=== PATIENT | male | born 1960 | race Caucasian/White ===

== ENCOUNTER 2020-05-03 13:47 | Inpatient (IN) | payer OTHER, SELFPAY ==
[2020-05-03] VITALS (41 sets, daily range): BP systolic 108–133; BP diastolic 57–82; PULSE 76–88; RESP 20–38; TEMP 36.4–36.8; O2SAT 81–98; BMI 25.0
--- NOTE | ~2020-05-03 | XR_ITS ---
XR chest ET placement DATE: 05/08/2020 09:55 INDICATION: Intubation TECHNIQUE: Portable AP chest on 05/08/2020 at 0946 hours COMPARISON: 05/03/2020 portable AP chest at 1443 hours FINDINGS: This is a limited examination excluding much of the left thorax. ET tube placement since 05/03/2020, the tip of the ET tube approximately 5.3 cm above the maryam. A nasogastric tube is noted in the stomach. Extensive bilateral pulmonary patchy consolidating infiltrates are again noted. No aortic arch calcif ication. IMPRESSION: Interval ET tube placement, distal tip 5.3 cm above maryam NG tube in stomach Persistent extensive bilateral patchy consolidating infiltrates Reviewed, dictated and finalized at [facility]. Reviewed, dictated and finalized at location A. ER HELPER IMPRESSION: Interval ET tube placement, distal tip 5.3 cm above amryam NG tube in stomach Persistent extensive bilateral patchy consolidating infiltrates
--- NOTE | ~2020-05-03 | US_ITS ---
EXAMINATION: US arterial duplex LE DATE: 05/11/2020 10:26 INDICATION: Acute right lower limb ischemia. TECHNIQUE: Multiple grayscale and Doppler ultrasound images of the lower limb arteries were obtained. COMPARISON: None FINDINGS: Peak systolic velocity is 77 cm/s in right common femoral artery, 25 cm/s in right superfic ial femoral artery, and 13 cm/s in right popliteal artery. There is no detectable flow in right anter ior tibial artery or posterior tibial artery. The peroneal artery was not evaluated. Pieces artery velocity is 78 cm/s left common femoral artery, 39 cm/s in left superficial femoral art richard, 170 cm/s in left popliteal artery, 36 cm/s left posterior tibial artery, and 17 cm/s left anteri or tibial artery. The peroneal artery was not evaluated. IMPRESSION: 1. 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 Increased velocity gr adient between right common femoral artery and superficial femoral artery, consistent with moderate t o severe stenosis. 2. Increased velocity gradients proximal and distal to left popliteal artery, consistent with moderat e to severe stenosis. Reviewed, dictated and finalized at location A. INAL INTELLIGENCE ANALYST IMPRESSION: 1. 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 Increased velocity gradient between right common femoral artery and superficia l femoral artery, consistent with moderate to severe stenosis. 2. Increased velocity gradients proximal and distal to left popliteal artery, c onsistent with moderate to severe stenosis.
--- NOTE | ~2020-05-03 | XR_ITS ---
EXAMINATION: XR chest 1V portable EXAM DATE: 05/03/2020 15:02 INDICATION: Shortness of breath. TECHNIQUE: Portable AP frontal chest x-ray was obtained. There is no prior study for comparison. FINDINGS: Moderate to large amount of bilateral peripheral predominant acute airspace disease, appear ance is most consistent with COVID-19 pneumonia. Other infectious or noninfectious etiologies not exc ludable. No pneumothorax or pleural effusion. Cardiomediastinal silhouette is normal. IMPRESSION: Moderate to large amount of acute airspace disease, appearance suspicious for COVID-19 p neumonia. Reviewed, dictated and finalized at location B. R MAIN PIPE LAYER IMPRESSION: Moderate to large amount of acute airspace disease, appearance mena picious for COVID-19 pneumonia.
--- NOTE | ~2020-05-03 | XR_ITS ---
EXAMINATION: XR chest 1V portable EXAM DATE: 05/09/2020 05:38 INDICATION: COVID-19 pneumonia . Respiratory failure. TECHNIQUE: Portable AP frontal chest x-ray was obtained. Comparison is made to prior examination from 05/08/2020. FINDINGS: Endotracheal tube tip is 6 centimeters above the maryam. There is a right-sided PICC line w ith tip projecting over the cavoatrial junction. There is a nasogastric tube seen with tip collimated off the study, but below the left hemidiaphragm. Moderate amount of patchy bilateral peripheral predominant acute airspace disease There are no sizab le pleural effusions. There is no pneumothorax suspected. Cardiomediastinal silhouette is normal. The bones and soft tissues are unremarkable. There is no significant interval change compared to prior exam. IMPRESSION: 1. Line and tube(s) in position. 2. Moderate amount of bilateral airspace disease consistent with COVID-19 pneumonia. Reviewed, dictated and finalized at location A. THETIC AIDE IMPRESSION: 1. Line and tube(s) in position. 2. Moderate amount of bilateral airspace disease consistent with COVID-19 pneu monia.
--- NOTE | ~2020-05-03 | XR_ITS ---
XR chest PICC line DATE: 05/08/2020 12:34 INDICATION: PICC line placement TECHNIQUE: Portable AP chest on 05/08/2020 at 1225 hours COMPARISON: 05/08/2020 portable AP chest at 0946 hours FINDINGS: Interval placement of right upper extremity PIC catheter, the distal tip overlying the caud al aspect of the superior vena cava. ET tube in satisfactory position approximately 4.8 cm above maryam. NG tube in stomach. Severe bilateral patchy consolidating infiltrates are again noted. IMPRESSION: Right upper extremity PIC catheter tip at caudal aspect of superior vena cava Reviewed, dictated and finalized at [facility]. Reviewed, dictated and finalized at location A. NE PAINTER
--- NOTE | ~2020-05-03 | XR_ITS ---
EXAMINATION: XR chest 1V portable EXAM DATE: 05/10/2020 06:15 INDICATION: COVID-19 pneumonia. TECHNIQUE: Portable AP frontal chest x-ray was obtained. Comparison is made to prior examination from 05/09/2020. FINDINGS: Endotracheal tube tip is 5 centimeters above the maryam. There is a right-sided PICC line w ith tip projecting over the cavoatrial junction. There is a nasogastric tube seen with tip collimate d off the study, but below the left hemidiaphragm. Large amount of patchy bilateral acute airspace disease, consistent with COVID-19. There are no siza ble pleural effusions. There is no pneumothorax suspected. Cardiomediastinal silhouette is normal . The bones and soft tissues are unremarkable. Worsening airspace disease. IMPRESSION: 1. Line and tube(s) in position. 2. Extensive bilateral acute airspace disease, interval progression. Reviewed, dictated and finalized at location A. YLENE CYLINDER PACKING MIXER
--- NOTE | ~2020-05-03 | XR_ITS ---
EXAMINATION: XR chest 1V portable EXAM DATE: 05/11/2020 05:48 INDICATION: COVID-19 pneumonia TECHNIQUE: Portable AP frontal chest x-ray was obtained. Comparison is made to prior examination from 05/10/2020. FINDINGS: Endotracheal tube tip is 5 centimeters above the maryam. There is a right-sided PICC line w ith tip projecting over the cavoatrial junction. There is a nasogastric tube seen with tip collimate d off the study, but below the left hemidiaphragm. Large amount of patchy bilateral acute airspace disease, consistent with COVID-19. There are no siza ble pleural effusions. There is no pneumothorax suspected. Cardiomediastinal silhouette is normal . The bones and soft tissues are unremarkable. There is no significant interval change. IMPRESSION: 1. Line and tube(s) in position. 2. Extensive bilateral acute airspace disease. Reviewed, dictated and finalized at location A. CONSULTANT
--- NOTE | ~2020-05-03 | XR_ITS ---
XR abdomen NG/feed tube insert DATE: 05/08/2020 09:56 INDICATION: NG tube placement TECHNIQUE: Portable AP view on 05/08/2020 at 0947 hours COMPARISON: None FINDINGS: A nasogastric tube is noted in the lower body of the stomach, the proximal side-port 8 cm d istal to the diaphragmatic hiatus. Diffuse patchy bilateral consolidating infiltrates are again noted. Heart size appears normal. Aortic arch calcification. Nonspecific bowel gas pattern without apparent obstruction. IMPRESSION: NG tube in lower body of stomach Reviewed, dictated and finalized at [facility]. Reviewed, dictated and finalized at location A. KER
--- NOTE | ~2020-05-03 | XR_ITS ---
EXAMINATION: XR chest 1V portable EXAM DATE: 05/12/2020 06:14 INDICATION: COVID-19 pneumonia TECHNIQUE: Portable AP frontal chest x-ray was obtained. Comparison is made to prior examination from 05/11, 05/10, 05/09. FINDINGS: Endotracheal tube tip is 5 centimeters above the maryam. There is a right-sided PICC line w ith tip projecting over the cavoatrial junction. There is a nasogastric tube seen with tip collimate d off the study, but below the left hemidiaphragm. Large amount of patchy bilateral acute airspace disease, consistent with COVID-19. There are no siza ble pleural effusions. There is no pneumothorax suspected. Cardiomediastinal silhouette is normal . The bones and soft tissues are unremarkable. There is no significant interval change. IMPRESSION: 1. Line and tube(s) in position. 2. Extensive bilateral acute airspace disease. Reviewed, dictated and finalized at location A. REGROOVING MACHINE OPERATOR
--- NOTE | 2020-05-03 14:06 | ECG_ITS ---
Measurements Intervals [place] Rate: 83 P: 52 WY: 143 QRS: -33 QRSD: 106 T: 30 QT: 376 QTc: 443 Interpretive Statements SINUS RHYTHM LEFT AXIS DEVIATION DELAYED PRECORDIAL R/S TRANSITION BASELINE ARTIFACT- I, II, III, AVR, AVL, AVF, V1 BORDERLINE ECG Electronically Signed On 05-03-2020 14:29:00 IT INTEGRATION ARCHITECT by Juan Powers D.O.
--- NOTE | 2020-05-03 14:12 | PC.NURSE ---
pt placed on 6 liters nc with pulse ox increasing to 85%. pt continues to c/o some. switched to 12 l nrb with pulse ox increasing to 96%.
--- NOTE | 2020-05-03 14:24 | ED.GENADULT ---
HPI - General Adult General Chief complaint: Weakness Stated complaint: covid +, weakness Time Seen by Provider: 05/03/20 14:11 Source: patient History of Present Illness HPI narrative: Patient is a 60 y/o male complaining of severe SOB. He states that his SOB started around 04/24/20 and it has been getting worse last few days. He states that any activity and exertion makes SOB worse. He also has a cough, fever, body ache and generalized weakness. He tested positive for COVID on 04/29/20. Related Data Home Medications Medication Instructions Recorded Confirmed canagliflozin [Invokana] 300 mg PO DAILY 05/03/20 05/03/20 metformin 1,000 mg PO BID 05/03/20 05/03/20 Allergies Allergy/AdvReac Type Severity Reaction Status Date / Time No Known Allergies Allergy Verified 05/03/20 15:16 Review of Systems Constitutional: Constitutional: Denies chills, Reports fever(s), Denies headache(s) and Reports weakness Eyes: Eyes: Denies blurry vision ENT: Denies headache(s) and Denies neck pain Cardiovascular: Cardiovascular: Denies chest pain and Reports dyspnea Respiratory: Respiratory: Reports cough and Reports dyspnea Gastrointestinal: Gastrointestinal: Denies abdominal pain, Denies diarrhea, Denies nausea and Denies vomiting Genitourinary: Genitourinary: Denies hematuria and Denies dysuria Musculoskeletal: Musculoskeletal: Denies back pain, Reports myalgias and Denies neck pain Neurologic: Denies headache(s) and Reports weakness PMFSH Past Medical History Medical History (Updated 05/03/20 @ 18:36 by Roberta Heard MD) Hypertriglyceridemia Type 2 diabetes mellitus Surgical History Surgical History (Updated 05/03/20 @ 16:38 by Ela Ventura DO) History of cardiac catheterization History of repair of right rotator cuff With no significant disease noted Family History Family History Mother Diabetes mellitus CHF (congestive heart failure) Father CHF (congestive heart failure) Diabetes mellitus Social History Social History (Updated 05/03/20 @ 16:49 by Ela Ventura DO) Social History: He lives in [place] with his . They have a total of 5 children between the 2 of them. He is 1 of 9 children. One of his siblings young but the rest are relatively healthy. Primary care physician: Dr. Nuno Messina Code status: Full code Smoking packs per day: 1 Smoking cigarettes per day: 20.0 Years smoked: 32 Smoking pack-years: 32.00 Smoking status: Former smoker Alcohol intake: never Alcohol use details: He rarely drinks alcohol and only in small amounts. However used to drink heavier in his younger days. Substance use: never Substance use type: does not use Occupation/Education: occupation Additional occupation/education comments: He works in [employer] sales. Gender identity (if verbalized by the patient): Male Spiritual care concerns: No Exam Const: General: well developed and ill appearing Orientation/consciousness: oriented to person, oriented to place, oriented to time and patient oriented x3 HENMT: Head: normocephalic Ears: external ears normal General nose exam: Normal external nose present Eyes: General: appearance normal, both eyes and all related structures Conjunctivae: conjunctivae normal Neck: Neck: normal visual inspection and full ROM Chest: Chest palpation & inspection: normal inspection of the chest and no tenderness Resp: Effort & Inspection: able to speak in complete sentences, abnormal respiratory pattern and tachypneic Cardio: Rate: regular rate Rhythm: regular rhythm GI: GI Palp: No abdominal tenderness and Yes Soft to palpation Skin: General skin exam: normal color and turgor normal Neuro: General: oriented to person, oriented to place, oriented to time and patient oriented x3 Cognition (Neuro): normal cognition Extrem: General: misty
[2020-05-03 14:37] LABS: Basophils Percent Auto 0.2 % (0.2-1.2); Eosinophils Percent Auto 0.2 % (0-4.4); Hemoglobin 15.1 g/dL (14.0-18.0); Immature Granulocyte Absolute 0.04 K/mm3 (0.00-0.031); Immature Granulocyte Percent A 0.6 % (0-0.5); Immature Platelet Fraction Pct 2.9 % (0.9-11.2); Lymphocytes Absolute Auto 0.82 K/mm3 (0.9-3.2); Lymphocytes Percent Auto 12.7 % (18.3-44.2); Mean Corpuscular Hemoglobin 32.6 pg (26-34); Mean Corpuscular Volume 90.7 fl (80-100); Monocytes Absolute Auto 0.3 K/mm3 (0.1-0.6); Neutrophils Absolute Auto 5.3 K/mm3 (1.3-6.7); Neutrophils Percent Auto 82.3 % (45.5-73.1); Platelet Count Result 144 k/mm3 (150-375); Red Blood Count 4.63 M/mm3 (4.6-6.20); Red Cell Distribution Width 11.2 % (11.5-14.5); White Blood Count 6.5 K/mm3 (4.5-10.0)
[2020-05-03 14:47] LABS: Alanine Aminotransferase 23 U/L (4-50); Albumin Level 3.9 g/dL (3.5-5.1); Alkaline Phosphatase 70 U/L (38-126); Anion Gap 9 mmol/L (8-16); Aspartate Amino Transferase 49 U/L (17-59); Bilirubin,Total 1.7 mg/dL (0.2-1.3); Blood Urea Nitrogen 18 mg/dL (9-20); Calcium 8.2 mg/dL (8.4-10.2); Carbon Dioxide 30 mmol/L (22-30); Chloride 93 mmol/L (98-107); Estimated CRCL calculation 75 ml/min; Estimated Glomerular Filt Rate > 60; Glucose 189 mg/dL (75-110); Potassium 4.1 mmol/L (3.4-5.0); Sodium 132 mmol/L (137-145)
[2020-05-03 15:02] LABS: Alveolar/Arterial O2 Gradient 612.8 mmHg; Base Excess ABG 0.6 mEq/l (+/-2.0); Fractional Inspired Oxygen 100 %; HCO3 ABG 23.9 mEq/l (22.0-26.0); Oxygen Content ABG 19.9 %vol (16.0-22.0); Oxygen Saturation ABG 94.1 % (95.0-100.0); Oxyhemoglobin 92.4 % THb (90.0-100.0); PCO2 ABG 34.4 mmHg (35.0-45.0); PO2 ABG 65.8 mmHg (80.0-100.0); PO2 FiO2 Ratio Arterial Blood 0.66 %; Total Hemoglobin 15.3 g/dL (12.0-18.0); pH ABG 7.459 (7.350-7.450)
[2020-05-03 15:14] LABS: Device NON-REBREATHER MASK; Modified Allen's Test Pass; Site Drawn RIGHT RADIAL
[2020-05-03] MEDS: DEXAMETHASONE SOD PHOS INJ 4 MG/ML VIAL 6 MG IV PUSH (15:31)
--- NOTE | 2020-05-03 15:46 | PM.IMHP ---
H&P: HPI History of Present Illness Date/Time: 05/03/20 15:46 Chief complaint: Acute Respiratory Failure w/Hypoxia, COVID Pneumon Narrative: Sylvester Bazan is a 60 year old male Of hypertriglyceridemia and type 2 diabetes mellitus who presented to the ER with 1 week of weakness, shortness of breath associated with known COVID-19 infection. 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 He subsequently exposed all of his coworkers when he came back positive. The patient reported the symptoms started on 04/24/2020. He felt like it was of worst flu he had ever had. He had fevers up to 103. He developed shortness of breath that is progressively worsened throughout the course of his illness. On day 4 in 5 he developed diarrhea and loss of sense of taste and smell. He has had decreased appetite with associated decreased oral intake. He has not had any nausea or vomiting. He has had severe rigors and chills. He has had 2 falls in the past week. He was so weak today that he could not stand up in brush his teeth. His shortness of breath is worse with minimal activity. He was taking Tylenol [id number] for his fevers with little relief in his symptoms. He was trying to ?sweat his fever out.? He has been having some generalized headaches and myalgias. He denies any vision changes. He has not had any localized weakness. He denies a history of lung disease but is former smoker and quit smoking in his 40s. Review of Systems Review of Systems: Narrative: 12 systems were reviewed with pertinent positives and negatives per HPI. Except as documented in the HPI, all other systems were reviewed and are negative. [facility] Past Medical History Medical History (Updated 05/03/20 @ 16:49 by Ela Ventura DO) Hypertriglyceridemia Type 2 diabetes mellitus Surgical History Surgical History (Updated 05/03/20 @ 16:38 by Ela Ventura DO) History of cardiac catheterization History of repair of right rotator cuff With no significant disease noted Family History Family History Mother Diabetes mellitus CHF (congestive heart failure) Father CHF (congestive heart failure) Diabetes mellitus Social History Social History (Updated 05/03/20 @ 16:49 by MAVIS Geiger Social History: He lives in [place] with his . They have a total of 5 children between the 2 of them. He is 1 of 9 children. One of his siblings young but the rest are relatively healthy. Primary care physician: Dr. Nuno Messina Code status: Full code Smoking packs per day: 1 Smoking cigarettes per day: 20.0 Years smoked: 32 Smoking pack-years: 32.00 Smoking status: Former smoker Alcohol use details: He rarely drinks alcohol and only in small amounts. However used to drink heavier in his younger days. Substance use: never Occupation/Education: occupation Additional occupation/education comments: He works in [employer]. Meds Home Medications and Allergies Allergies Allergy/AdvReac Type Severity Reaction Status Date / Time No Known Allergies Allergy Verified 05/03/20 15:16 Vital Signs Vital Signs - 24 hr 05/03/20 14:03 Temperature 97.5 F L Pulse Rate 84 Respiratory Rate 20 Blood Pressure 111/66 Pulse Oximetry 90 Exam Narrative: Exam Narrative: PHYSICAL EXAM: WEIGHT 81.6 kg BMI 26.6 General: Mildly ill-appearing, appears stated age, height weight proportionate HEENT: Mucous membranes are tacky, pupils are equal and reactive, no scleral icterus, no conjunctival pallor, head is normocephalic atraumatic Respiratory: Tachypneic, equal breath sounds bilaterally Cardiovascular: Regular rate, regular rhythm, 2+ pulses bilateral upper and lower extremities Gastrointestinal: Soft, nontender, nondistended, positive bowel vinh
--- NOTE | 2020-05-03 17:00 | PC.NURSE ---
pt states is feeling better. ease of breathing improved. pt remains on 12 l nc. pulse ox upper 90's resp 28 at rest. admission in progress. wtg med from pharmacy.
--- NOTE | 2020-05-03 18:45 | PC.NURSE ---
respirations remain 28 at rest. continue waiting for bed to be ready in imu. nurse to call when ready.
--- NOTE | 2020-05-03 21:13 | ADMGEN ---
This patient, Sylvester Bazan, was admitted to IMU Room 206-01 [id number]. Patient/family oriented to hospital policies and general routines including ID bracelet, bed and alarms, visiting hours, pain management, procedures, bathroom and other care routines, personal items, smoking policy, room service/diet, and visiting hours. Information on how to activate the Rapid Response Team has been discussed. Patient/Family are encouraged to report perceived risks to care and to ask questions if they do not understand what they are told or what they should do.
[2020-05-03] MEDS: REMDESIVIR 200 MG/NS 250 ML 200 MG/250 ML BAG 250 MG IVPB (21:16)
[2020-05-04] VITALS (15 sets, daily range): BP systolic 110–129; BP diastolic 59–73; PULSE 71–110; RESP 20–24; TEMP 35.5–36.7; O2SAT 87–99; BMI 25.0
[2020-05-04 03:45] LABS: Glucose Point of Care 199 (65-105)
[2020-05-04 05:39] LABS: Hematocrit 42.5 % (42.0-52.0); Hemoglobin 15.3 g/dL (14.0-18.0); Mean Corpuscular Hemoglobin 32.3 pg (26-34); Mean Corpuscular Volume 89.9 fl (80-100); Platelet Count Result 122 k/mm3 (150-375); Red Blood Count 4.73 M/mm3 (4.6-6.20); White Blood Count 4.2 K/mm3 (4.5-10.0)
[2020-05-04 05:47] LABS: D Dimer 1.82 ug/mL (<0.48)
[2020-05-04 05:51] LABS: Potassium 4.3 mmol/L (3.4-5.0)
[2020-05-04 06:00] LABS: Alanine Aminotransferase 23 U/L (4-50); Albumin Level 3.7 g/dL (3.5-5.1); Alkaline Phosphatase 74 U/L (38-126); Anion Gap 15 mmol/L (8-16); Aspartate Amino Transferase 46 U/L (17-59); Bilirubin,Total 1.4 mg/dL (0.2-1.3); Blood Urea Nitrogen 24 mg/dL (9-20); Calcium 8.4 mg/dL (8.4-10.2); Carbon Dioxide 26 mmol/L (22-30); Chloride 94 mmol/L (98-107); Estimated CRCL calculation 72 ml/min; Estimated Glomerular Filt Rate > 60; Glucose 204 mg/dL (75-110); Lactate Dehydrogenase 1298 U/L (313-618); Sodium 135 mmol/L (137-145)
[2020-05-04 07:33] LABS: Ferritin > 2000.00 ng/mL (11.1-264)
[2020-05-04] MEDS: DEXAMETHASONE SOD PHOS INJ 4 MG/ML VIAL 6 MG IV PUSH (09:13)
[2020-05-04] MEDS: ENOXAPARIN 40 MG/0.4 ML SYRINGE SUB-Q ×2 (09:13→21:57)
[2020-05-04] MEDS: INSULIN ASPART (*BKC) 100 UNITS/ML SUB-Q ×3 (09:14→17:36)
--- NOTE | 2020-05-04 09:18 | PM.IMPN ---
Progress Note: A&P Assessment and Plan (1) Acute respiratory failure with hypoxia: Code(s): J96.01 - Acute respiratory failure with hypoxia Status: Acute Assessment and Plan: Currently on non-rebreather (2) Pneumonia due to COVID-19 virus: Code(s): U07.1 - COVID-19; J12.89 - Other viral pneumonia Status: Acute Assessment and Plan: -diagnosed -keep supplemental O2 to keep O2 sat >90% -Remdesivir, dexamethasone 05/03- -convalescent plasma 05/04 ordered -protonix for GI prophylaxis -lovenox 40mg BID moderate dose anticoagulation -supplements: zinc, vitamin c, vitamin d -nebulizers/MDI: albuterol -tylenol for fever -guaifenesin for cough -incentive spirometry if able q1hr while awake -will check inflammatory markers ferritin, ldh, crp q48hrs (3) Diabetes mellitus with hyperglycemia: Qualifiers: Diabetes mellitus type: type 2 Diabetes mellitus usp insulin use: without usp use Qualified Code(s): E11.65 - Type 2 diabetes mellitus with hyperglycemia Code(s): E11.65 - Type 2 diabetes mellitus with hyperglycemia Status: Acute Assessment and Plan: -diabetic carb consistent diet -sliding scale insulin a.c. HS -hypoglycemia protocol -anticipate hyperglycemia with Decadron Additional Plan Diet: Carb consistent diet DVT prophylaxis: Lovenox Code status: Full code Disposition: IMU while on non-rebreather Subjective Date/time seen: 05/04/20 09:18 Patient examined. Patient is on a non-rebreather at 15 L. we discussed treatment with supplemental oxygen, with potential patient may need Airvo or intubation. He was not keen on intubation, and I told him that he is young and that intubation would be necessary to maintain his oxygenation otherwise he could . Will give patient albuterol nebs and start supplements, increasing Lovenox to b.i.d.. Supportive care. Patient denies fever, chills, nausea, vomiting, diarrhea, chest pain. He endorses dyspnea. I discussed with contractor broomcorn threshing, will give convalescent plasma considering his significant oxygen need. Review of Systems Review of Systems: All systems reviewed & are unremarkable except as noted in HPI and below Exam Narrative: Exam Narrative: - GENERAL: Pleasant male in respiratory distress - EYES: EOMI. Anicteric. - HENT: Moist mucous membranes. No scleral icterus. - LUNGS: Clear to auscultation bilaterally, diminished - CARDIOVASCULAR: Regular rate and rhythm. No murmur. No JVD. - ABDOMEN: Soft, non-tender and non-distended. No palpable masses. - EXTREMITIES: No edema. Peripheral pulses 2+. Non-tender. - NEUROLOGIC: No focal neurological deficits. CN II-XII grossly intact. - PSYCHIATRIC: Awake, Alert and oriented x 3. Appropriate mood and affect, anxious. - SKIN: No rashes or lesions. Warm. - LYMPH: No cervical lymphadenopathy. Objective Data Vital Signs Vital Signs: Vital Signs - 24 hr 05/03/20 14:03 05/03/20 15:33 05/03/20 15:45 Temperature 36.4 C L Pulse Rate 84 83 83 Respiratory Rate 20 29 H 35 H Blood Pressure 111/66 Pulse Oximetry 90 95 96 05/03/20 15:46 05/03/20 16:00 05/03/20 16:01 Temperature Pulse Rate 83 83 85 Respiratory Rate 31 H 29 H 26 H Blood Pressure 126/72 133/76 Pulse Oximetry 96 97 98 05/03/20 16:15 05/03/20 16:16 05/03/20 16:37 Temperature Pulse Rate 84 88 85 Respiratory Rate 32 H 33 H 33 H Blood Pressure 121/76 Pulse Oximetry 96 96 97 05/03/20 16:45 05/03/20 16:46 05/03/20 16:47 Temperature Pulse Rate 84 84 86 Respiratory Rate 30 H 35 H 33 H Blood Pressure 124/77 Pulse Oximetry 97 98 97 05/03/20 17:00 05/03/20 17:01 05/03/20 17:21 Temperature Pulse Rate 86 85 83 Respiratory Rate 29 H 29 H 28 H Blood Pressure 119/67 Pulse Oximetry 94 94 97 05/03/20 17:30 05/03/20 17:31 05/03/20 17:45 Temperature Pulse Rate 83 87 81 Respiratory Rate 20 28 H 36 H Blood Pressure 123/68 Pulse Oximetry 98 94 96 05/03/20 17:4
[2020-05-04 09:21] LABS: Glucose Point of Care 265 (65-105)
[2020-05-04 11:57] LABS: Glucose Point of Care 242 (65-105)
[2020-05-04] MEDS: ZINC SULFATE 220 MG CAPSULE PO (13:31)
[2020-05-04] MEDS: PANTOPRAZOLE 40 MG TABLET PO ×2 (13:31→21:57)
[2020-05-04] MEDS: CHOLECALCIFEROL 1,000 UNITS TABLET 1000 UNITS PO (13:32)
[2020-05-04] MEDS: ASCORBIC ACID 500 MG TABLET PO (13:32)
[2020-05-04 16:57] LABS: Glucose Point of Care 305 (65-105)
[2020-05-04] MEDS: REMDESIVIR 100 MG/NS 250 ML 100 MG/250 ML BAG 250 MG IVPB (17:37)
[2020-05-04 20:32] LABS: Glucose Point of Care 309 (65-105)
[2020-05-04] MEDS: ALBUTEROL SULFATE NEB 2.5 MG/0.5 ML INH 5 MG INHALATION (21:37)
[2020-05-05] VITALS (18 sets, daily range): BP systolic 119–128; BP diastolic 46–69; PULSE 63–103; RESP 22–26; TEMP 36–36.4; O2SAT 85–97
--- NOTE | 2020-05-05 01:50 | PCRCNOTE ---
Window of time for administration has passed. See next scheduled administration.
[2020-05-05 05:45] LABS: Alanine Aminotransferase 29 U/L (4-50); Lactate Dehydrogenase 1175 U/L (313-618)
[2020-05-05 06:23] LABS: Hemoglobin A1C 7.8 % (<5.7)
--- NOTE | 2020-05-05 06:29 | PCRCNOTE ---
Window of time for administration has passed. See next scheduled administration.
[2020-05-05 08:36] LABS: Glucose Point of Care 402 (65-105)
[2020-05-05] MEDS: INSULIN ASPART (*BKC) 100 UNITS/ML SUB-Q ×3 (08:50→17:32)
[2020-05-05] MEDS: INSULIN ASPART (*BKC) 100 UNITS/ML 10 UNITS SUB-Q (08:50)
[2020-05-05] MEDS: CHOLECALCIFEROL 1,000 UNITS TABLET 1000 UNITS PO (08:50)
[2020-05-05] MEDS: ZINC SULFATE 220 MG CAPSULE PO (08:50)
[2020-05-05] MEDS: ASCORBIC ACID 500 MG TABLET PO (08:50)
[2020-05-05] MEDS: PANTOPRAZOLE 40 MG TABLET PO ×2 (08:51→20:34)
[2020-05-05] MEDS: DEXAMETHASONE SOD PHOS INJ 4 MG/ML VIAL 6 MG IV PUSH (08:51)
[2020-05-05] MEDS: ENOXAPARIN 40 MG/0.4 ML SYRINGE SUB-Q ×2 (08:51→20:34)
[2020-05-05 09:30] LABS: Estimated CRCL calculation 81 ml/min; Estimated Glomerular Filt Rate > 60
[2020-05-05 14:06] LABS: Glucose Point of Care 298 (65-105)
--- NOTE | 2020-05-05 16:38 | PM.IMPN ---
Progress Note: A&P Assessment and Plan (1) Acute respiratory failure with hypoxia: Code(s): J96.01 - Acute respiratory failure with hypoxia Status: Acute Assessment and Plan: Currently on non-rebreather (2) Pneumonia due to COVID-19 virus: Code(s): U07.1 - COVID-19; J12.89 - Other viral pneumonia Status: Acute Assessment and Plan: -diagnosed 04/29/2020, symptom onset 04/24- -keep supplemental O2 to keep O2 sat >90% -Remdesivir, dexamethasone 05/03- -convalescent plasma 05/04 ordered -protonix for GI prophylaxis -lovenox 40mg BID moderate dose anticoagulation -supplements: zinc, vitamin c, vitamin d -nebulizers/MDI: albuterol -tylenol for fever -guaifenesin for cough -incentive spirometry if able q1hr while awake -will check inflammatory markers ferritin, ldh, crp q48hrs (3) Diabetes mellitus with hyperglycemia: Qualifiers: Diabetes mellitus type: type 2 Diabetes mellitus care home insulin use: without medical terminologist use Qualified Code(s): E11.65 - Type 2 diabetes mellitus with hyperglycemia Code(s): E11.65 - Type 2 diabetes mellitus with hyperglycemia Status: Acute Assessment and Plan: -hemoglobin A1c 7.8 -diabetic carb consistent diet -sliding scale insulin a.c. HS -hypoglycemia protocol -anticipate hyperglycemia with Decadron Additional Plan Diet: Carb consistent diet DVT prophylaxis: Lovenox Code status: Full code Disposition: IMU while on non-rebreather Subjective Date/time seen: 05/05/20 16:38 Patient examined. He is still tachypneic rate 24. He states he feels okay, he had some anxiety with respiratory therapy trying to switch to nasal cannula high-flow. Will continue with non-rebreather supportive care. Complement plasma has been ordered, still waiting for it. Continue dexamethasone and remdesivir. Patient denies chest pain, lightheadedness, dizziness, fever, chills, nausea, vomiting, diarrhea. Review of Systems Review of Systems: All systems reviewed & are unremarkable except as noted in HPI and below Exam Narrative: Exam Narrative: - GENERAL: Pleasant male in respiratory distress on non-rebreather - EYES: EOMI. Anicteric. - HENT: Moist mucous membranes. - LUNGS: Diminished lung sounds throughout - CARDIOVASCULAR: Regular rate and rhythm. No murmur. No JVD. - ABDOMEN: Soft, non-tender and non-distended. No palpable masses. - EXTREMITIES: No edema. Peripheral pulses 2+. Non-tender. - NEUROLOGIC: No focal neurological deficits. CN II-XII grossly intact. - PSYCHIATRIC: Awake, Alert and oriented x 3. Appropriate mood and affect, anxious. - SKIN: No rashes or lesions. Warm. - LYMPH: No cervical lymphadenopathy. Objective Data Vital Signs Vital Signs: Vital Signs - 24 hr 05/04/20 18:00 05/04/20 20:00 05/04/20 21:50 Temperature 36.7 C Pulse Rate 92 88 83 Respiratory Rate 20 20 Blood Pressure 126/71 Pulse Oximetry 90 05/04/20 21:51 05/04/20 22:00 05/04/20 23:40 Temperature 36.4 C Pulse Rate 86 81 Respiratory Rate 20 22 H Blood Pressure 127/70 Pulse Oximetry 90 97 05/05/20 00:00 05/05/20 02:00 05/05/20 04:00 Temperature 36.4 C Pulse Rate 84 74 77 Respiratory Rate 22 H 22 H Blood Pressure 119/69 Pulse Oximetry 97 90 05/05/20 06:00 05/05/20 08:00 05/05/20 09:41 Temperature 36.2 C L Pulse Rate 74 75 Respiratory Rate 24 H Blood Pressure 122/66 Pulse Oximetry 95 85 L 05/05/20 09:42 05/05/20 09:43 05/05/20 09:56 Temperature Pulse Rate 77 91 Respiratory Rate 24 H 24 H Blood Pressure Pulse Oximetry 90 05/05/20 10:00 05/05/20 12:00 05/05/20 14:00 Temperature 36.2 C L Pulse Rate 103 H 75 91 Respiratory Rate 24 H Blood Pressure 127/67 Pulse Oximetry 95 05/05/20 14:30 05/05/20 14:40 Temperature Pulse Rate 91 92 Respiratory Rate 24 H 24 H Blood Pressure Pulse Oximetry Intake/Output Intake/Output: Intake & Output 05/02/20 05/03/20 05/04/20 1
[2020-05-05] MEDS: REMDESIVIR 100 MG/NS 250 ML 100 MG/250 ML BAG 250 MG IVPB (17:31)
[2020-05-05 18:26] LABS: Glucose Point of Care 306 (65-105)
[2020-05-05 21:01] LABS: Glucose Point of Care 363 (65-105)
[2020-05-06] VITALS (18 sets, daily range): BP systolic 109–145; BP diastolic 63–89; PULSE 66–94; RESP 18–26; TEMP 36–36.4; O2SAT 90–99
--- NOTE | 2020-05-06 00:41 | PCRCNOTE ---
Window of time for administration has passed. See next scheduled administration.
[2020-05-06 06:12] LABS: Alanine Aminotransferase 36 U/L (4-50); Albumin Level 3.2 g/dL (3.5-5.1); Alkaline Phosphatase 75 U/L (38-126); Aspartate Amino Transferase 54 U/L (17-59); Bilirubin,Total 1.5 mg/dL (0.2-1.3); CRP 4.3 mg/dL (<1.0); Estimated CRCL calculation 91 ml/min; Estimated Glomerular Filt Rate > 60; Lactate Dehydrogenase 1247 U/L (313-618)
[2020-05-06 09:30] LABS: Glucose Point of Care 242 (65-105)
--- NOTE | 2020-05-06 10:09 | PM.IMPN ---
Progress Note: A&P Assessment and Plan (1) Acute respiratory failure with hypoxia: Code(s): J96.01 - Acute respiratory failure with hypoxia Status: Acute Assessment and Plan: Currently on non-rebreather (2) Pneumonia due to COVID-19 virus: Code(s): U07.1 - COVID-19; J12.89 - Other viral pneumonia Status: Acute Assessment and Plan: -diagnosed 04/29/2020, symptom onset 04/24- -keep supplemental O2 to keep O2 sat >90% -Remdesivir, dexamethasone 05/03- -convalescent plasma 05/04 ordered -protonix for GI prophylaxis -lovenox 40mg BID moderate dose anticoagulation -supplements: zinc, vitamin c, vitamin d -nebulizers/MDI: albuterol -tylenol for fever -guaifenesin for cough -incentive spirometry if able q1hr while awake -will check inflammatory markers ferritin, ldh, crp q48hrs -patient would like to get up to chair, will allow cautiously -stable no change of plan (3) Diabetes mellitus with hyperglycemia: Qualifiers: Diabetes mellitus type: type 2 Diabetes mellitus custodial insulin use: without custodial use Qualified Code(s): E11.65 - Type 2 diabetes mellitus with hyperglycemia Code(s): E11.65 - Type 2 diabetes mellitus with hyperglycemia Status: Acute Assessment and Plan: -hemoglobin A1c 7.8 -diabetic carb consistent diet -sliding scale insulin a.c. HS -hypoglycemia protocol -anticipate hyperglycemia with Decadron Additional Plan Diet: Carb consistent diet DVT prophylaxis: Lovenox Code status: Full code Disposition: IMU while on non-rebreather, stable Subjective Date/time seen: 05/06/20 10:09 Patient examined. He is currently on 10 L high-flow oxygen, non-rebreather 15 L. he is very anxious and tearful, increasing xanax to 1 mg b.i.d.. He understands the severity of his illness and is trying his hardest. He did not tolerate prone position and does tolerate sleeping on his side. Will continue therapy. Convalescent plasma was ordered 2 days ago however he still has not received it. Patient denies fever, chills, nausea, vomiting, diarrhea. Endorse anxiety and dyspnea. Review of Systems Review of Systems: All systems reviewed & are unremarkable except as noted in HPI and below Exam Narrative: Exam Narrative: - GENERAL: Pleasant male in respiratory distress on non-rebreather 15L and 10 L high flow oxygen - EYES: EOMI. Anicteric. - HENT: Moist mucous membranes. - LUNGS: Diminished lung sounds throughout - CARDIOVASCULAR: Regular rate and rhythm. No murmur. No JVD. - ABDOMEN: Soft, non-tender and non-distended. No palpable masses. - EXTREMITIES: No edema. Peripheral pulses 2+. Non-tender. - NEUROLOGIC: No focal neurological deficits. CN II-XII grossly intact. - PSYCHIATRIC: Awake, Alert and oriented x 3. Appropriate mood and affect, anxious. - SKIN: No rashes or lesions. Warm. - LYMPH: No cervical lymphadenopathy. Objective Data Vital Signs Vital Signs: Vital Signs - 24 hr 05/05/20 12:00 05/05/20 14:00 05/05/20 14:30 Temperature 36.2 C L Pulse Rate 75 91 91 Respiratory Rate 24 H 24 H Blood Pressure 127/67 Pulse Oximetry 95 05/05/20 14:40 05/05/20 16:00 05/05/20 18:00 Temperature 36.2 C L Pulse Rate 92 90 89 Respiratory Rate 24 H 26 H Blood Pressure 128/46 L Pulse Oximetry 89 L 05/05/20 20:00 05/05/20 22:00 05/06/20 00:00 Temperature 36.0 C L 36.1 C L Pulse Rate 63 74 69 Respiratory Rate 24 H 22 H Blood Pressure 124/66 145/73 H Pulse Oximetry 92 95 05/06/20 02:00 05/06/20 02:16 05/06/20 02:17 Temperature Pulse Rate 66 76 Respiratory Rate 22 H Blood Pressure Pulse Oximetry 95 05/06/20 02:37 05/06/20 04:00 05/06/20 06:00 Temperature 36.0 C L Pulse Rate 78 86 77 Respiratory Rate 22 H 24 H Blood Pressure 115/89 Pulse Oximetry 96 05/06/20 08:00 05/06/20 08:50 05/06/20 08:58 Temperature 36.4 C Pulse Rate 94 77 87 Respiratory Rate 20 26 H 24 H Blood Pressure 136/72 Pulse
[2020-05-06] MEDS: ASCORBIC ACID 500 MG TABLET PO (10:18)
[2020-05-06] MEDS: ZINC SULFATE 220 MG CAPSULE PO (10:19)
[2020-05-06] MEDS: DEXAMETHASONE SOD PHOS INJ 4 MG/ML VIAL 6 MG IV PUSH (10:19)
[2020-05-06] MEDS: PANTOPRAZOLE 40 MG TABLET PO ×2 (10:19→21:31)
[2020-05-06] MEDS: ENOXAPARIN 40 MG/0.4 ML SYRINGE SUB-Q ×2 (10:19→21:31)
[2020-05-06] MEDS: INSULIN ASPART (*BKC) 100 UNITS/ML SUB-Q ×3 (10:36→18:24)
[2020-05-06] MEDS: CHOLECALCIFEROL 1,000 UNITS TABLET 1000 UNITS PO (10:36)
[2020-05-06 14:54] LABS: Glucose Point of Care 269 (65-105)
[2020-05-06] MEDS: REMDESIVIR 100 MG/NS 250 ML 100 MG/250 ML BAG 250 MG IVPB (17:56)
[2020-05-06] MEDS: ALPRAZolam (*CRX) 0.5 MG TABLET 1 MG PO (18:24)
[2020-05-06 18:26] LABS: Glucose Point of Care 355 (65-105)
[2020-05-06 20:41] LABS: Glucose Point of Care 355 (65-105)
[2020-05-06] MEDS: ACETAMINOPHEN 325 MG TABLET 650 MG PO (21:31)
[2020-05-07] VITALS (24 sets, daily range): BP systolic 112–139; BP diastolic 50–78; PULSE 67–96; RESP 18–28; TEMP 36.1–38.1; O2SAT 88–100
[2020-05-07] MEDS: INSULIN ASPART (*BKC) 100 UNITS/ML 6 UNITS SUB-Q (00:27)
[2020-05-07 00:46] LABS: Glucose Point of Care 289 (65-105)
[2020-05-07 06:26] LABS: Alanine Aminotransferase 39 U/L (4-50); Estimated CRCL calculation 91 ml/min; Estimated Glomerular Filt Rate > 60; Lactate Dehydrogenase 1237 U/L (313-618)
--- NOTE | 2020-05-07 07:54 | PM.IMPN ---
Progress Note: A&P Assessment and Plan (1) Acute respiratory failure with hypoxia: Code(s): J96.01 - Acute respiratory failure with hypoxia Status: Acute Assessment and Plan: Currently on non-rebreather (2) Pneumonia due to COVID-19 virus: Code(s): U07.1 - COVID-19; J12.89 - Other viral pneumonia Status: Acute Assessment and Plan: -diagnosed 04/29/2020, symptom onset 04/24- -keep supplemental O2 to keep O2 sat >90% -Remdesivir, dexamethasone 05/03- -convalescent plasma 05/04 ordered -protonix for GI prophylaxis -lovenox 40mg BID moderate dose anticoagulation -supplements: zinc, vitamin c, vitamin d -nebulizers/MDI: albuterol -tylenol for fever -guaifenesin for cough -05/07 placing patient on Airvo (3) Diabetes mellitus with hyperglycemia: Qualifiers: Diabetes mellitus type: type 2 Diabetes mellitus superintendent marine oil terminal insulin use: without superintendent marine oil terminal use Qualified Code(s): E11.65 - Type 2 diabetes mellitus with hyperglycemia Code(s): E11.65 - Type 2 diabetes mellitus with hyperglycemia Status: Acute Assessment and Plan: -hemoglobin A1c 7.8 -diabetic carb consistent diet -sliding scale insulin a.c. HS -hypoglycemia protocol Additional Plan Diet: Carb consistent diet DVT prophylaxis: Lovenox Code status: Full code Disposition: IMU now on airvo Subjective Date/time seen: 05/07/20 07:54 Patient examined. Patient is on 15 L high-flow oxygen and 15 L non-rebreather. Patient is not doing well, starting Airvo today. Patient may need to be intubated if he further declines. Patient denies fever, chills, nausea, vomiting, diarrhea. He endorses weakness, anxiety, dyspnea. Review of Systems Review of Systems: All systems reviewed & are unremarkable except as noted in HPI and below Exam Narrative: Exam Narrative: - GENERAL: Pleasant male in respiratory distress on non-rebreather 15L and 15 L high flow oxygen - EYES: EOMI. Anicteric. - HENT: Moist mucous membranes. - LUNGS: Crackles right lung base, otherwise diminished throughout - CARDIOVASCULAR: Regular rate and rhythm. - ABDOMEN: Soft, non-tender and non-distended. - EXTREMITIES: No edema. Peripheral pulses 2+. - NEUROLOGIC: No focal neurological deficits. CN II-XII grossly intact. - PSYCHIATRIC: Awake, Alert and oriented x 3. Very anxious. - SKIN: No rashes or lesions. Warm. - LYMPH: No cervical lymphadenopathy. Objective Data Vital Signs Vital Signs: Vital Signs - 24 hr 05/06/20 08:00 05/06/20 08:50 05/06/20 08:58 Temperature 36.4 C Pulse Rate 76 77 87 Respiratory Rate 24 H 26 H 24 H Blood Pressure 136/72 Pulse Oximetry 91 05/06/20 12:00 05/06/20 14:00 05/06/20 16:00 Temperature 36.4 C 36.0 C L Pulse Rate 75 74 78 Respiratory Rate 24 H 24 H Blood Pressure 124/63 131/73 Pulse Oximetry 93 92 05/06/20 18:00 05/06/20 20:00 05/06/20 21:45 Temperature 36.1 C L Pulse Rate 90 83 79 Respiratory Rate 18 26 H Blood Pressure 109/63 Pulse Oximetry 90 05/06/20 22:00 05/06/20 22:12 05/07/20 00:00 Temperature 36.1 C L Pulse Rate 78 79 74 Respiratory Rate 26 H 24 H Blood Pressure 116/67 Pulse Oximetry 91 100 05/07/20 02:00 05/07/20 02:54 05/07/20 03:00 Temperature 36.3 C L Pulse Rate 72 75 77 Respiratory Rate 24 H 22 H Blood Pressure 113/73 Pulse Oximetry 91 05/07/20 03:14 05/07/20 03:15 05/07/20 04:00 Temperature 36.1 C L Pulse Rate 95 90 81 Respiratory Rate 24 H 20 24 H Blood Pressure 118/66 Pulse Oximetry 88 L 96 05/07/20 04:15 05/07/20 05:15 05/07/20 06:00 Temperature 36.2 C L 36.2 C L Pulse Rate 81 89 67 Respiratory Rate 24 H 20 Blood Pressure 131/70 131/66 Pulse Oximetry 96 90 05/07/20 07:25 Temperature 36.8 C Pulse Rate 78 Respiratory Rate 20 Blood Pressure 119/50 L Pulse Oximetry 97 Intake/Output Intake/Output: Intake & Output 05/04/20 05/05/20 05/06/20 05/07/20 23:59 23:59 23:59 23:59 Intake Total 1
[2020-05-07 09:36] LABS: Glucose Point of Care 272 (65-105)
[2020-05-07] MEDS: INSULIN ASPART (*BKC) 100 UNITS/ML SUB-Q ×3 (10:01→18:02)
[2020-05-07] MEDS: ASCORBIC ACID 500 MG TABLET PO (10:02)
[2020-05-07] MEDS: PANTOPRAZOLE 40 MG TABLET PO ×2 (10:02→20:49)
[2020-05-07] MEDS: DEXAMETHASONE SOD PHOS INJ 4 MG/ML VIAL 6 MG IV PUSH (10:02)
[2020-05-07] MEDS: CHOLECALCIFEROL 1,000 UNITS TABLET 1000 UNITS PO (10:02)
[2020-05-07] MEDS: ENOXAPARIN 40 MG/0.4 ML SYRINGE SUB-Q ×2 (10:02→20:49)
[2020-05-07] MEDS: ZINC SULFATE 220 MG CAPSULE PO (10:03)
[2020-05-07] MEDS: ALPRAZolam (*CRX) 0.5 MG TABLET 1 MG PO ×2 (10:24→18:02)
[2020-05-07] MEDS: ALPRAZolam (*CRX) 0.5 MG TABLET PO (11:59)
[2020-05-07 13:14] LABS: Glucose Point of Care 284 (65-105)
[2020-05-07] MEDS: REMDESIVIR 100 MG/NS 250 ML 100 MG/250 ML BAG 250 MG IVPB (16:25)
[2020-05-07 18:44] LABS: Glucose Point of Care 306 (65-105)
[2020-05-07 21:20] LABS: Glucose Point of Care 338 (65-105)
[2020-05-08] VITALS (30 sets, daily range): BP systolic 93–131; BP diastolic 62–77; PULSE 69–104; RESP 20–29; TEMP 36.2–37.7; O2SAT 89–97
--- NOTE | 2020-05-08 06:39 | PCRCNOTE ---
Window of time for administration has passed. See next scheduled administration.
[2020-05-08 06:46] LABS: Anion Gap 5 mmol/L (8-16); Blood Urea Nitrogen 18 mg/dL (9-20); Calcium 8.1 mg/dL (8.4-10.2); Carbon Dioxide 27 mmol/L (22-30); Chloride 100 mmol/L (98-107); Estimated CRCL calculation 91 ml/min; Estimated Glomerular Filt Rate > 60; Glucose 209 mg/dL (75-110); Lactate Dehydrogenase 1146 U/L (313-618); Potassium 4.2 mmol/L (3.4-5.0); Sodium 132 mmol/L (137-145)
[2020-05-08] MEDS: FENTANYL 2,500MCG/NS250ML(*CRX 2,500 MCG/250 ML BAG 20 MCG IV CONT ×2 (09:00→21:25)
[2020-05-08] MEDS: MIDAZOLAM HCL (*CRX) 2 MG/2 ML VIAL IV PUSH (09:30)
[2020-05-08] MEDS: fentaNYL CITRATE INJ (*CRX) 100 MCG/2 ML VIAL IV PUSH ×2 (09:30→09:55)
[2020-05-08] MEDS: MIDAZOLAM HCL (*CRX) 2 MG/2 ML VIAL 4 MG IV PUSH (09:55)
[2020-05-08 11:57] LABS: Glucose Point of Care 236 (65-105)
[2020-05-08] MEDS: INSULIN ASPART (*BKC) 100 UNITS/ML SUB-Q ×2 (13:03→18:28)
--- NOTE | 2020-05-08 13:05 | PM.IMPN ---
Progress Note: A&P Assessment and Plan (1) Acute respiratory failure with hypoxia: Code(s): J96.01 - Acute respiratory failure with hypoxia Status: Acute Assessment and Plan: -Intubated 05/08 -onsult workforce analyst for ICU management (2) Pneumonia due to COVID-19 virus: Code(s): U07.1 - COVID-19; J12.89 - Other viral pneumonia Status: Acute Assessment and Plan: -diagnosed 04/29/2020, symptom onset 04/24- -keep supplemental O2 to keep O2 sat >90% -Remdesivir, dexamethasone 05/03- -convalescent plasma 05/04 ordered -protonix for GI prophylaxis -lovenox 40mg BID moderate dose anticoagulation -supplements: zinc, vitamin c, vitamin d -nebulizers/MDI: albuterol -tylenol for fever -guaifenesin for cough -05/07 placing patient on Airvo -05/08 intubated for respiratory failure, 80% O2 sat maxed on Airvo (3) Diabetes mellitus with hyperglycemia: Qualifiers: Diabetes mellitus type: type 2 Diabetes mellitus prison insulin use: without intermodal dispatcher use Qualified Code(s): E11.65 - Type 2 diabetes mellitus with hyperglycemia Code(s): E11.65 - Type 2 diabetes mellitus with hyperglycemia Status: Acute Assessment and Plan: -hemoglobin A1c 7.8 -sliding scale insulin a.c. HS -hypoglycemia protocol Additional Plan Diet: NPO intubated DVT prophylaxis: Lovenox Code status: Full code Disposition: ICU intubated Subjective Date/time seen: 05/08/20 13:05 Patient examined. This morning he was on Airvo maxed out 60 L, oxygen saturation mid 80s. We discussed that next step would be intubation and he was hesitant. I informed him and his this is the only option we have if we are going to continue fighting the illness. I discussed case with workforce analyst Dr. Wang. Manager Development came bedside, patient when moving to seated position desaturated to the 70s. We discussed the pros and cons and patient was agreeable to intubation. Patient was intubated by workforce analyst and placed on ventilator. Patient will remain in the IMU until ICU bed opens. Patient endorses dyspnea, headache, lightheadedness. He denies fever, chills, nausea, vomiting, diarrhea, chest pain, abdominal pain. Review of Systems Review of Systems: All systems reviewed & are unremarkable except as noted in HPI and below Exam Narrative: Exam Narrative: - GENERAL: Pleasant male in respiratory distress on Airvo 60L - EYES: EOMI. Anicteric. - HENT: Moist mucous membranes. - LUNGS: Diminished throughout - CARDIOVASCULAR: Regular rate and rhythm. - ABDOMEN: Soft, non-tender and non-distended. - EXTREMITIES: No edema. Peripheral pulses 2+. - NEUROLOGIC: No focal neurological deficits. CN II-XII grossly intact. - PSYCHIATRIC: Awake, Alert and oriented x 3. Very anxious. - SKIN: No rashes or lesions. Warm. - LYMPH: No cervical lymphadenopathy. Objective Data Vital Signs Vital Signs: Vital Signs - 24 hr 05/07/20 14:00 05/07/20 15:33 05/07/20 16:00 Temperature 36.6 C Pulse Rate 90 91 94 Respiratory Rate 24 H 24 H Blood Pressure 133/78 Pulse Oximetry 96 95 05/07/20 18:00 05/07/20 20:00 05/07/20 22:00 Temperature 36.4 C L Pulse Rate 90 88 71 Respiratory Rate 20 Blood Pressure 112/64 Pulse Oximetry 95 05/07/20 22:48 05/07/20 23:50 05/08/20 00:00 Temperature 36.2 C L Pulse Rate 94 71 70 Respiratory Rate 24 H 20 Blood Pressure 123/62 Pulse Oximetry 92 96 05/08/20 02:00 05/08/20 04:00 05/08/20 06:00 Temperature 36.2 C L Pulse Rate 83 80 81 Respiratory Rate 20 Blood Pressure 131/77 Pulse Oximetry 93 05/08/20 08:00 05/08/20 09:10 05/08/20 09:50 Temperature Pulse Rate 104 H 97 Respiratory Rate 28 H Blood Pressure Pulse Oximetry 89 L 97 05/08/20 10:06 Temperature Pulse Rate 102 H Respiratory Rate 29 H Blood Pressure Pulse Oximetry Intake/Output Intake/Output: Intake & Output 05/05/20 05/06/20 05/07/20 05/08/20 23:59 23:59 23:59 23
[2020-05-08] MEDS: ENOXAPARIN 40 MG/0.4 ML SYRINGE SUB-Q ×2 (13:31→20:52)
[2020-05-08] MEDS: DEXAMETHASONE SOD PHOS INJ 4 MG/ML VIAL 6 MG IV PUSH (13:31)
[2020-05-08] MEDS: CENTRAL LINE FLUSH 10 ML IV PUSH ×2 (13:32→16:34)
--- NOTE | 2020-05-08 14:26 | WPDCNINT ---
Assessment and Plan Assessment and plan (1) Acute respiratory failure with hypoxia: Code(s): J96.01 - Acute respiratory failure with hypoxia Status: Acute Assessment and Plan: Hypoxic respiratory secondary COVID-19 pneumonia -patient was requiring high-flow therapy, 60 L flow rate and 86-90% FiO2 -O2 sats were in the 70s and 80s, patient was tachypneic with blunting of mentation, impending respiratory failure, decided to intubate the patient -patient successfully intubated on 01/06/2020 -continue fentanyl and Versed infusion for sedation, maintain RASS of 0 to -2, daily sedation vacation -will add bronchodilators (2) Pneumonia due to COVID-19 virus: Code(s): U07.1 - COVID-19; J12.89 - Other viral pneumonia Status: Acute Assessment and Plan: Patient status post Remdesivir -continue dexamethasone -received convalescent plasma on 05/07/2020 -will monitor inflammatory markers -continue droplet, airborne and contact isolation/precautions (3) Diabetes mellitus with hyperglycemia: Qualifiers: Diabetes mellitus type: type 2 Diabetes mellitus longwall foreman insulin use: without longwall foreman use Qualified Code(s): E11.65 - Type 2 diabetes mellitus with hyperglycemia Code(s): E11.65 - Type 2 diabetes mellitus with hyperglycemia Status: Acute Assessment and Plan: Continue sliding scale insulin and Accu-Cheks (4) DVT prophylaxis: Code(s): Z29.9 - Encounter for prophylactic measures, unspecified Status: Acute Assessment and Plan: Continue Lovenox SQ Q12H (5) Dietary counseling and surveillance: Code(s): Z71.3 - Dietary counseling and surveillance Status: Acute Assessment and Plan: Will start tube feeds in a.m. Additional Plan D/w [place], patient's and updated with patient's condition and plan of care. I did discuss with her regarding why we intubated the patient and placed him on mechanical ventilator. I answered all questions Code status: Full code Critical care time spent: 47 minutes Due to a high probability of clinically significant, life threatening deterioration, the patient required my highest level of preparedness to intervene emergently and I personally spent this critical care time directly and personally managing the patient. This critical care time included obtaining a history; examining the patient; pulse oximetry; ordering and review of studies; arranging urgent treatment with development of a management plan; evaluation of patient's response to treatment; frequent reassessment; and discussions with other providers. It was exclusive of separately billable procedures and treating other patients and teaching time. Please see Assessment and Plan section and the rest of the note for further information on patient assessment and treatment [employer] Leader Consult Note Consult date: 05/08/20 Time Seen: 09:11 Reason for consult: COVID-19 pneumonia, acute hypoxic respiratory failure -intubated 05/08/2020 HPI: Sylvseter Bazan is a 60 year old male with past medical history of hypertriglyceridemia and type 2 diabetes presented to the ED on 05/03/2020 with complains of worsening shortness of breath with no COVID-19 infection. 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 Patient started having symptoms on 04/24/2020, with flu-like symptoms with fevers of 103.0 F. He also developed shortness of breath has progressively worsened until the day of admission, he was also feeling severe weakness, along with chills and rigors. Also complained of loss of sense of taste and smell and diarrhea. He did not have any nausea vomiting. He was also complaining of myalgias. Chest x-ray on admission showed moderate to large amount of acute airspace disease, apparent suspicious COVID-19 pneumonia. Patient was admitted to the medical floor on 15 L no
--- NOTE | 2020-05-08 14:54 | WPDPROCEDUR ---
Procedures Intubation Intubation Date: 05/08/20 A pre-procedural Time-Out was completed immediately before starting the procedure and confirmed: Patient Identification, Site, Procedure, Patient Position and the Availability of Requisite Equipment: Yes Sedative: etomidate Paralytic: rocuronium Laryngoscope: fiber optic video scope Assist device used: fiber optic device ET tube size: 8 Tube secured depth (cm): 24 Tube secured location: lips Tube placement confirmation: visualized tube passing through cords, equal breath sounds bilaterally, no breath sounds over epigastrium and confirmation by capnometry Patient tolerated procedure: well and no complications Intubation complications: none
[2020-05-08 16:14] LABS: Base Excess ABG -2.5 mEq/l (+/-2.0); Fractional Inspired Oxygen 100 %; HCO3 ABG 21.1 mEq/l (22.0-26.0); Oxygen Content ABG 17.6 %vol (16.0-22.0); Oxyhemoglobin 95.7 % THb (90.0-100.0); PCO2 ABG 32.7 mmHg (35.0-45.0); PO2 ABG 88.3 mmHg (80.0-100.0); PO2 FiO2 Ratio Arterial Blood 0.88 %; pH ABG 7.427 (7.350-7.450)
[2020-05-08 16:15] LABS: Arterial Blood Gas Vent Mode CMV; Arterial Blood Gas Ventilator rate 24 /MIN; Device VENTILATOR; Modified Allen's Test Pass; Site Drawn LEFT RADIAL
[2020-05-08 16:16] LABS: Arterial Blood Gas PEEP 5 cmH2O; Arterial Blood Gas Pressure Support 0 cmH2O; Arterial Blood Gas Tidal Volume 430 ml
[2020-05-08 18:41] LABS: Glucose Point of Care 269 (65-105)
[2020-05-08] MEDS: PANTOPRAZOLE 40 MG TABLET PO (20:53)
[2020-05-08 21:00] LABS: Glucose Point of Care 242 (65-105)
[2020-05-09] VITALS (37 sets, daily range): BP systolic 92–118; BP diastolic 65–92; PULSE 68–92; RESP 20–34; TEMP 36.2–37.7; O2SAT 92–96; BMI 26.9
[2020-05-09] MEDS: CENTRAL LINE FLUSH 10 ML IV PUSH ×5 (00:10→20:52)
[2020-05-09] MEDS: INSULIN ASPART (*BKC) 100 UNITS/ML SUB-Q ×5 (00:10→23:36)
[2020-05-09 00:24] LABS: Glucose Point of Care 252 (65-105)
[2020-05-09 02:14] LABS: Alveolar/Arterial O2 Gradient 602.1 mmHg; Base Excess ABG -0.3 mEq/l (+/-2.0); Carboxyhemoglobin 0.3 % THb (0-2.0); Fractional Inspired Oxygen 100 %; HCO3 ABG 24.5 mEq/l (22.0-26.0); Methemoglobin ABG 0.2 %THb (0-1.5); Oxygen Content ABG 18.1 %vol (16.0-22.0); PO2 ABG 69.9 mmHg (80.0-100.0); Reduced Hemoglobin 6.5 %THb (0-5.0); Total Hemoglobin 13.8 g/dL (12.0-18.0); pH ABG 7.395 (7.350-7.450)
[2020-05-09 02:15] LABS: Device VENTILATOR; Modified Allen's Test Unable to perform; Site Drawn LEFT RADIAL
[2020-05-09 02:16] LABS: Arterial Blood Gas PEEP 5 cmH2O; Arterial Blood Gas Tidal Volume 430 ml; Arterial Blood Gas Vent Mode CMV; Arterial Blood Gas Ventilator rate 24 /MIN
[2020-05-09 03:40] LABS: Hematocrit 36.1 % (42.0-52.0); Hemoglobin 12.7 g/dL (14.0-18.0); Mean Corpuscular HGB Conc 35.2 g/dl (32-36); Mean Corpuscular Hemoglobin 33.2 pg (26-34); Mean Corpuscular Volume 94.5 fl (80-100); Mean Platelet Volume 8.5 fl (7.4-10.4); Platelet Count Result 150 k/mm3 (150-375); Red Blood Count 3.82 M/mm3 (4.6-6.20); Red Cell Distribution Width 11.4 % (11.5-14.5)
[2020-05-09 04:24] LABS: D Dimer 12.13 ug/mL (<0.48)
[2020-05-09 04:25] LABS: Alanine Aminotransferase 38 U/L (4-50); Albumin Level 2.7 g/dL (3.5-5.1); Alkaline Phosphatase 88 U/L (38-126); Anion Gap 5 mmol/L (8-16); Aspartate Amino Transferase 30 U/L (17-59); Bilirubin,Total 1.2 mg/dL (0.2-1.3); Blood Urea Nitrogen 22 mg/dL (9-20); Calcium 8.2 mg/dL (8.4-10.2); Carbon Dioxide 28 mmol/L (22-30); Chloride 102 mmol/L (98-107); Estimated CRCL calculation 91 ml/min; Estimated Glomerular Filt Rate > 60; Glucose 252 mg/dL (75-110); Lactate Dehydrogenase 925 U/L (313-618); Magnesium 2.6 mg/dL (1.6-2.3); Phosphorus 4.5 mg/dL (2.5-4.5); Potassium 4.7 mmol/L (3.4-5.0); Sodium 135 mmol/L (137-145)
[2020-05-09 04:44] LABS: CRP 21.7 mg/dL (<1.0)
[2020-05-09 05:16] LABS: Glucose Point of Care 227 (65-105)
[2020-05-09] MEDS: FENTANYL 2,500MCG/NS250ML(*CRX 2,500 MCG/250 ML BAG 20 MCG IV CONT ×2 (09:55→21:03)
[2020-05-09] MEDS: DEXAMETHASONE SOD PHOS INJ 4 MG/ML VIAL 6 MG IV PUSH (09:57)
[2020-05-09] MEDS: ENOXAPARIN 40 MG/0.4 ML SYRINGE SUB-Q ×2 (09:57→20:52)
[2020-05-09] MEDS: ASCORBIC ACID 500 MG TABLET PO (10:27)
[2020-05-09] MEDS: ZINC SULFATE 220 MG CAPSULE PO (10:27)
[2020-05-09] MEDS: CHOLECALCIFEROL 1,000 UNITS TABLET 1000 UNITS PO (10:27)
[2020-05-09] MEDS: INSULIN DETEMIR 100 UNITS/ML SUB-Q ×2 (10:27→20:51)
--- NOTE | 2020-05-09 11:58 | PCDIET ---
Nutrition Follow-Up Complete: Nutrition Diagnosis: Predicted suboptimal oral intake related to decreased appetite as evidenced by patient statements, reported weight loss. Nutrition Goal: Patient to consume 75% of meals/shakes or greater and maintain weight Goal not met, as patient now intubated. New Goal: Patient to meet estimated nutritional needs. Discussed with MD; plan to start tube feedings today. Recommended goal of 60mL/hr Glucerna 1.2 x 22 hours/day for 1584kcal, 79g protein and 1062mL free water. Recommend standard water flush of 30mL every 4 hours. Verbal order obtained. Last recorded weight is 80.4 kg which is increased from last review. Bowel Motility: Last documented BM on 05/06/20. Labs Reviewed: Hgb (12.7), Hct (36.1), Glu (252), BUN (22), Na (135), Alb (2.7) Meds Noted: Vitamin C, Decadron, Fentanyl, Novolog, Levemir, Xopenex, Versed, Protonix, Vitamin D, Zinc Sulfate Additional Notes: No documented skin breakdown. Nutrition Monitoring and Evaluation: Follow up every Saturday/Saturday.
[2020-05-09] MEDS: PANTOPRAZOLE SODIUM IV 40 MG VIAL IV PUSH ×2 (14:29→20:52)
[2020-05-09 14:46] LABS: Glucose Point of Care 222 (65-105)
--- NOTE | 2020-05-09 15:41 | PM.IMPN ---
Progress Note: A&P Assessment and Plan (1) Acute respiratory failure with hypoxia: Code(s): J96.01 - Acute respiratory failure with hypoxia Status: Acute Assessment and Plan: -Intubated 05/08 -onsult airfield engineer officer for ICU management (2) Pneumonia due to COVID-19 virus: Code(s): U07.1 - COVID-19; J12.89 - Other viral pneumonia Status: Acute Assessment and Plan: -diagnosed 04/29/2020, symptom onset 04/24- -keep supplemental O2 to keep O2 sat >90% -Remdesivir, dexamethasone 05/03- -convalescent plasma 05/04 ordered -protonix for GI prophylaxis -lovenox 40mg BID moderate dose anticoagulation -supplements: zinc, vitamin c, vitamin d -nebulizers/MDI: albuterol -tylenol for fever -guaifenesin for cough -05/07 placing patient on Airvo -05/08 intubated for impending respiratory failure -tube feeds started 05/09 -PEEP 5, FiO2 decreased from 100% to 90% (3) Diabetes mellitus with hyperglycemia: Qualifiers: Diabetes mellitus type: type 2 Diabetes mellitus exterminator helper termite insulin use: without senior living use Qualified Code(s): E11.65 - Type 2 diabetes mellitus with hyperglycemia Code(s): E11.65 - Type 2 diabetes mellitus with hyperglycemia Status: Acute Assessment and Plan: -hemoglobin A1c 7.8 -sliding scale insulin a.c. HS -hypoglycemia protocol Additional Plan Diet: Tube feeds started DVT prophylaxis: Lovenox Code status: Full code Disposition: ICU intubated Subjective Date/time seen: 05/09/20 15:41 Patient examined. Patient is intubated, sedated. FiO2 decreased to 95%, peep 5. Tube feeds started today. Patient is stable on ventilator. He was intubated 05/08/2020 for impending respiratory failure O2 saturation 70s. Review of Systems Review of Systems: ROS unobtainable: Yes unobtainable due to endotracheal tube Exam Narrative: Exam Narrative: - GENERAL: Male intubated and sedated - EYES: Anicteric - HENT: Moist mucous membranes. ETT and OG tube in place. - LUNGS: Clear to auscultation no wheezing or rales on ventilator - CARDIOVASCULAR: Regular rate and rhythm. - ABDOMEN: Soft, nondistended. Bowel sounds present. - EXTREMITIES: No edema. Peripheral pulses 2+. - NEUROLOGIC: Unable to evaluate sedation - PSYCHIATRIC: Unable to evaluate sedation - SKIN: No rashes or lesions. Warm. - LYMPH: No cervical lymphadenopathy. Objective Data Vital Signs Vital Signs: Vital Signs - 24 hr 05/08/20 16:00 05/08/20 16:01 05/08/20 16:30 Temperature 37.0 C Pulse Rate 83 83 79 Respiratory Rate 24 H 24 H Blood Pressure 110/77 Pulse Oximetry 95 94 05/08/20 16:33 05/08/20 18:00 05/08/20 18:33 Temperature Pulse Rate 79 78 73 Respiratory Rate 24 H 24 H 24 H Blood Pressure 113/74 Pulse Oximetry 96 05/08/20 18:34 05/08/20 19:47 05/08/20 20:00 Temperature 36.2 C L Pulse Rate 74 76 75 Respiratory Rate 24 H 24 H 24 H Blood Pressure 95/69 L Pulse Oximetry 95 96 05/08/20 20:02 05/08/20 20:54 05/08/20 21:25 Temperature Pulse Rate 77 75 75 Respiratory Rate 24 H 25 H 24 H Blood Pressure Pulse Oximetry 05/08/20 21:54 05/08/20 22:00 05/08/20 23:17 Temperature Pulse Rate 72 75 69 Respiratory Rate 24 H Blood Pressure 93/68 L Pulse Oximetry 95 95 05/09/20 00:00 05/09/20 00:09 05/09/20 00:10 Temperature 36.3 C L Pulse Rate 69 68 69 Respiratory Rate 24 H 34 H 24 H Blood Pressure 95/66 L Pulse Oximetry 96 96 05/09/20 00:11 05/09/20 01:55 05/09/20 02:00 Temperature Pulse Rate 69 70 69 Respiratory Rate 24 H 24 H 24 H Blood Pressure 92/67 L Pulse Oximetry 95 95 05/09/20 02:02 05/09/20 03:20 05/09/20 04:00 Temperature 36.6 C Pulse Rate 70 75 72 Respiratory Rate 24 H 24 H 24 H Blood Pressure 95/68 L Pulse Oximetry 95 96 05/09/20 06:00 05/09/20 07:53 05/09/20 08:01 Temperature Pulse Rate 71 71 71 Respiratory Rate 24 H 24 H Blood Pressure 95/70 L Pulse Oximetry 96 95
--- NOTE | 2020-05-09 17:22 | WPDINTPN ---
Progress Note: A&P Assessment and Plan (1) Acute respiratory failure with hypoxia: Code(s): J96.01 - Acute respiratory failure with hypoxia Status: Acute Assessment and Plan: Hypoxic respiratory secondary COVID-19 pneumonia -failed high flow therapy and BiPAP was intubated on 05/08/2020 -continue CMV mode of ventilation, peep of 5, will wean FiO2 to maintain O2 sats greater than 92 to 94% -continue fentanyl and Versed infusion for sedation, maintain RASS of 0 to -2, daily sedation vacation -continue bronchodilators (2) Pneumonia due to COVID-19 virus: Code(s): U07.1 - COVID-19; J12.89 - Other viral pneumonia Status: Acute Assessment and Plan: Patient status post Remdesivir -continue dexamethasone -received convalescent plasma on 05/07/2020 -inflammatory markers elevated, will continue to trend -continue droplet, airborne and contact isolation/precautions (3) Diabetes mellitus with hyperglycemia: Qualifiers: Diabetes mellitus type: type 2 Diabetes mellitus intermodal dispatcher insulin use: without intermodal dispatcher use Qualified Code(s): E11.65 - Type 2 diabetes mellitus with hyperglycemia Code(s): E11.65 - Type 2 diabetes mellitus with hyperglycemia Status: Acute Assessment and Plan: Continue sliding scale insulin and Accu-Cheks -will start Levemir for hyperglycemia which could be related to steroids (4) DVT prophylaxis: Code(s): Z29.9 - Encounter for prophylactic measures, unspecified Status: Acute Assessment and Plan: Continue Lovenox SQ Q12H (5) Dietary counseling and surveillance: Code(s): Z71.3 - Dietary counseling and surveillance Status: Acute Assessment and Plan: Patient tolerating tube feeds Additional Plan D/w Cheyenne, patient's and updated with patient's condition and plan of care. I did discuss with her regarding why we intubated the patient and placed him on mechanical ventilator. I answered all questions Code status: Full code Critical care time spent: 33 minutes Due to a high probability of clinically significant, life threatening deterioration, the patient required my highest level of preparedness to intervene emergently and I personally spent this critical care time directly and personally managing the patient. This critical care time included obtaining a history; examining the patient; pulse oximetry; ordering and review of studies; arranging urgent treatment with development of a management plan; evaluation of patient's response to treatment; frequent reassessment; and discussions with other providers. It was exclusive of separately billable procedures and treating other patients and teaching time. Please see Assessment and Plan section and the rest of the note for further information on patient assessment and treatment Subjective Date/time seen: 05/09/20 17:22 Interval history: Reason for consult: COVID-19 pneumonia, acute hypoxic respiratory failure 05/09/2020: No issues overnight, patient remains intubated CMV mode of ventilation, peep of 5, 100% FiO2. LDH, ferritin, D-dimer and CRP all elevated. Urine output has been adequate, patient is afebrile and hemodynamically stable. Sedated with fentanyl and Versed infusion Review of Systems Review of Systems: ROS unobtainable: Yes unobtainable due to endotracheal tube Exam Const: General: comfortable and no acute distress HENMT: Other: ETT in place Eyes: Sclera: sclerae normal Pupils: Equal, round and reactive pupils present Neck: Neck: supple Resp: Effort & Inspection: normal respiratory effort Auscultation: rales, rhonchi and diminished lung sounds Other: Coarse breath sounds bilaterally Cardio: Rate: regular rate Rhythm: regular rhythm GI: Inspection: non-distended GI Palp: Yes Soft to palpation and No Tenderness to palpation present (GI) Auscultation: normal bowel sounds : Other: Smith catheter in place Urinary Catheter: Urinary Ca
[2020-05-09 18:18] LABS: Glucose Point of Care 224 (65-105)
[2020-05-09 21:08] LABS: Glucose Point of Care 270 (65-105)
[2020-05-09 23:40] LABS: Glucose Point of Care 284 (65-105)
[2020-05-10] VITALS (33 sets, daily range): BP systolic 99–116; BP diastolic 66–74; PULSE 72–90; RESP 22–33; TEMP 36.4–37.4; O2SAT 94–97
[2020-05-10] MEDS: CENTRAL LINE FLUSH 10 ML IV PUSH ×4 (05:22→21:45)
[2020-05-10] MEDS: INSULIN ASPART (*BKC) 100 UNITS/ML SUB-Q ×3 (05:22→18:37)
[2020-05-10 05:23] LABS: Hematocrit 37.2 % (42.0-52.0); Mean Corpuscular HGB Conc 34.9 g/dl (32-36); Mean Corpuscular Hemoglobin 33.6 pg (26-34); Mean Corpuscular Volume 96.1 fl (80-100); Mean Platelet Volume 8.8 fl (7.4-10.4); Platelet Count Result 158 k/mm3 (150-375); Red Blood Count 3.87 M/mm3 (4.6-6.20); Red Cell Distribution Width 11.4 % (11.5-14.5); White Blood Count 7.2 K/mm3 (4.5-10.0)
[2020-05-10 05:29] LABS: Glucose Point of Care 239 (65-105)
[2020-05-10 05:35] LABS: Alanine Aminotransferase 27 U/L (4-50); Albumin Level 2.7 g/dL (3.5-5.1); Alkaline Phosphatase 83 U/L (38-126); Anion Gap 0 mmol/L (8-16); Aspartate Amino Transferase 21 U/L (17-59); Blood Urea Nitrogen 24 mg/dL (9-20); Calcium 8.2 mg/dL (8.4-10.2); Carbon Dioxide 32 mmol/L (22-30); Chloride 106 mmol/L (98-107); Estimated CRCL calculation 81 ml/min; Estimated Glomerular Filt Rate > 60; Glucose 250 mg/dL (75-110); Magnesium 2.7 mg/dL (1.6-2.3); Phosphorus 3.7 mg/dL (2.5-4.5); Potassium 4.7 mmol/L (3.4-5.0); Sodium 138 mmol/L (137-145)
[2020-05-10 06:33] LABS: Base Excess ABG -0.1 mEq/l (+/-2.0); Carboxyhemoglobin 0.3 % THb (0-2.0); Device VENTILATOR; Fractional Inspired Oxygen 90 %; HCO3 ABG 24.3 mEq/l (22.0-26.0); Methemoglobin ABG 0.1 %THb (0-1.5); Modified Allen's Test Pass; Oxygen Content ABG 16.8 %vol (16.0-22.0); Oxygen Saturation ABG 94.4 % (95.0-100.0); Oxyhemoglobin 93.3 % THb (90.0-100.0); PCO2 ABG 39.1 mmHg (35.0-45.0); PO2 ABG 70.6 mmHg (80.0-100.0); PO2 FiO2 Ratio Arterial Blood 0.78 %; Reduced Hemoglobin 6.3 %THb (0-5.0); Site Drawn LEFT RADIAL; Total Hemoglobin 12.8 g/dL (12.0-18.0); pH ABG 7.412 (7.350-7.450)
[2020-05-10 06:34] LABS: Arterial Blood Gas PEEP 5 cmH2O; Arterial Blood Gas Tidal Volume 400 ml; Arterial Blood Gas Vent Mode CMV; Arterial Blood Gas Ventilator rate 25 /MIN
[2020-05-10] MEDS: ASCORBIC ACID 500 MG TABLET PO (08:29)
[2020-05-10] MEDS: CHOLECALCIFEROL 1,000 UNITS TABLET 1000 UNITS PO (08:29)
[2020-05-10] MEDS: ZINC SULFATE 220 MG CAPSULE PO (08:29)
[2020-05-10] MEDS: DEXAMETHASONE SOD PHOS INJ 4 MG/ML VIAL 6 MG IV PUSH (08:29)
[2020-05-10] MEDS: ENOXAPARIN 40 MG/0.4 ML SYRINGE SUB-Q ×2 (08:29→20:38)
[2020-05-10] MEDS: INSULIN DETEMIR 100 UNITS/ML SUB-Q ×2 (08:30→20:38)
[2020-05-10] MEDS: PANTOPRAZOLE SODIUM IV 40 MG VIAL IV PUSH ×2 (08:30→20:37)
[2020-05-10] MEDS: PROPOFOL IV EMULSION 100 ML 2.4 MG IV CONT (10:08)
[2020-05-10] MEDS: FENTANYL 2,500MCG/NS250ML(*CRX 2,500 MCG/250 ML BAG 20 MCG IV CONT ×2 (10:10→23:17)
--- NOTE | 2020-05-10 12:30 | PCDIET ---
Nutrition Follow-Up Complete: Nutrition Diagnosis: Predicted suboptimal oral intake related to decreased appetite as evidenced by patient statements, reported weight loss. Nutrition Goal: Patient to meet estimated nutritional needs. Goal met. Patient tolerating Glucerna 1.2 which is advancing toward goal of 60mL/hr. No signs/symptoms of intolerance reported. Last recorded weight is 79.9 kg which is slightly decreased from last review. -I/O. Bowel Motility: Last documented BM on 05/06/20. Labs Reviewed: Hgb (13.0), Hct (37.2), Glu (250), BUN (24), Alb (2.7), Ermelinda Ca (9.24) Meds Noted: Propofol (rate of 4.79mL/hr provides 126kcal per day), Vitamin D, Zinc Sulfate, Vitamin C, Decadron, Fentanyl, Novolog, Levemir, Xopenex, Versed, Protonix Additional Notes: No documented skin breakdown. Will continue to monitor with same goal. Nutrition Monitoring and Evaluation: Follow up every Saturday/Saturday.
--- NOTE | 2020-05-10 13:18 | WPDINTPN ---
Progress Note: A&P Assessment and Plan (1) Acute respiratory failure with hypoxia: Code(s): J96.01 - Acute respiratory failure with hypoxia Status: Acute Assessment and Plan: Hypoxic respiratory secondary COVID-19 pneumonia -failed high flow therapy and BiPAP was intubated on 05/08/2020 -continue CMV mode of ventilation, peep of 5, continue 2to wean FiO2 to maintain O2 sats greater than 92 to 94% -continue fentanyl and Versed infusion for sedation, maintain RASS of 0 to -2, daily sedation vacation -continue bronchodilators (2) Pneumonia due to COVID-19 virus: Code(s): U07.1 - COVID-19; J12.89 - Other viral pneumonia Status: Acute Assessment and Plan: Patient status post Remdesivir -continue dexamethasone -received convalescent plasma on 05/07/2020 -inflammatory markers elevated, will continue to trend -continue droplet, airborne and contact isolation/precautions (3) Diabetes mellitus with hyperglycemia: Qualifiers: Diabetes mellitus type: type 2 Diabetes mellitus mcc insulin use: without mcc use Qualified Code(s): E11.65 - Type 2 diabetes mellitus with hyperglycemia Code(s): E11.65 - Type 2 diabetes mellitus with hyperglycemia Status: Acute Assessment and Plan: Continue sliding scale insulin and Accu-Cheks -increase Levemir (4) DVT prophylaxis: Code(s): Z29.9 - Encounter for prophylactic measures, unspecified Status: Acute Assessment and Plan: Continue Lovenox SQ Q12H (5) Dietary counseling and surveillance: Code(s): Z71.3 - Dietary counseling and surveillance Status: Acute Assessment and Plan: Patient tolerating tube feeds Additional Plan D/w Cheyenne, patient's and updated with patient's condition and plan of care. I answered all questions Code status: Full code Critical care time spent: 34 minutes Due to a high probability of clinically significant, life threatening deterioration, the patient required my highest level of preparedness to intervene emergently and I personally spent this critical care time directly and personally managing the patient. This critical care time included obtaining a history; examining the patient; pulse oximetry; ordering and review of studies; arranging urgent treatment with development of a management plan; evaluation of patient's response to treatment; frequent reassessment; and discussions with other providers. It was exclusive of separately billable procedures and treating other patients and teaching time. Please see Assessment and Plan section and the rest of the note for further information on patient assessment and treatment Subjective Date/time seen: 05/10/20 13:18 Interval history: Reason for consult: COVID-19 pneumonia, acute hypoxic respiratory failure 05/10/2020: No issues overnight, patient remains intubated on peep of 5, 90% FiO2. Urine output has been adequate, patient tolerating tube feeds. Sedated with fentanyl Versed infusion, patient is afebrile and hemodynamically stable. 05/09/2020: No issues overnight, patient remains intubated CMV mode of ventilation, peep of 5, 100% FiO2. LDH, ferritin, D-dimer and CRP all elevated. Urine output has been adequate, patient is afebrile and hemodynamically stable. Sedated with fentanyl and Versed infusion Review of Systems Review of Systems: ROS unobtainable: Yes unobtainable due to endotracheal tube Exam Const: General: comfortable and no acute distress HENMT: Other: ETT in place Eyes: Sclera: sclerae normal Pupils: Equal, round and reactive pupils present Neck: Neck: supple Resp: Effort & Inspection: normal respiratory effort Auscultation: rales, rhonchi and diminished lung sounds Other: Coarse breath sounds bilaterally Cardio: Rate: regular rate Rhythm: regular rhythm GI: Inspection: non-distended GI Palp: Yes Soft to palpation and No Tenderness to palpation present (GI) Auscultation: n
[2020-05-10 13:24] LABS: Glucose Point of Care 260 (65-105)
--- NOTE | 2020-05-10 16:08 | PM.IMPN ---
Progress Note: A&P Assessment and Plan (1) Acute respiratory failure with hypoxia: Code(s): J96.01 - Acute respiratory failure with hypoxia Status: Acute Assessment and Plan: -Intubated 05/08 -chronic care nurse for ICU management -on ventilator with tube feeds - continue care as before (2) Pneumonia due to COVID-19 virus: Code(s): U07.1 - COVID-19; J12.89 - Other viral pneumonia Status: Acute Assessment and Plan: -diagnosed 04/29/2020, symptom onset 04/24- -sedated on ventilator -Remdesivir, dexamethasone 05/03- -convalescent plasma 05/04 ordered -05/07 placing patient on Airvo -05/08 intubated for impending respiratory failure -tube feeds started 05/09 -continue care as before (3) Diabetes mellitus with hyperglycemia: Qualifiers: Diabetes mellitus fpc insulin use: without intermodal dispatcher use Diabetes mellitus type: type 2 Qualified Code(s): E11.65 - Type 2 diabetes mellitus with hyperglycemia Code(s): E11.65 - Type 2 diabetes mellitus with hyperglycemia Status: Acute Assessment and Plan: -hemoglobin A1c 7.8 -sliding scale insulin a.c. HS -hypoglycemia protocol - continue care as before Subjective Date/time seen: 05/10/20 16:08 Interval history: Patient is intubated, sedated. Continue care in icu, 60 year old male known history of hypertriglyceridemia and type 2 diabetes mellitus who presented to the ER with 1 week of weakness, shortness of breath associated with known COVID-19 infection, pt is on a ventilator, no other concerns mentioned. continue care. Review of Systems Review of Systems: ROS unobtainable: Yes unobtainable due to endotracheal tube Exam Narrative: Exam Narrative: - GENERAL: Male intubated and sedated Vital Signs Temp Pulse Resp BP Pulse Ox 05/11/20 06:00 88 25 H 106/69 92 05/11/20 05:30 92 95 05/11/20 04:45 89 25 H 05/11/20 04:12 83 26 H 05/11/20 04:07 81 30 H 05/11/20 04:00 37.7 C H 81 25 H 113/69 96 05/11/20 03:49 89 25 H 05/11/20 02:45 82 94 12/02/20 02:00 81 25 H 112/71 94 05/11/20 00:00 37.0 C 80 25 H 107/67 95 05/10/20 23:17 81 26 H 05/10/20 23:10 77 96 05/10/20 22:00 82 25 H 107/66 97 05/10/20 21:47 77 25 H 05/10/20 20:50 76 95 05/10/20 20:00 36.6 C 72 25 H 116/72 95 05/10/20 18:46 75 95 05/10/20 18:00 75 26 H 110/69 95 05/10/20 16:00 84 26 H 101/67 94 05/10/20 14:57 80 27 H
[2020-05-10 18:43] LABS: Glucose Point of Care 312 (65-105)
[2020-05-10 20:47] LABS: Glucose Point of Care 299 (65-105)
[2020-05-10] MEDS: PROPOFOL IV EMULSION 100 ML 7.19 MG IV CONT (21:44)
--- NOTE | 2020-05-10 22:20 | P.PNCROSS_ITS ---
Event Note Event Note Event Note: Received a call from the patient's nurse with concerns of possible limb ischemia. On routine examination, the right foot was cool and mottled to just above the ankle and she was unable to palpate or here posterior tibialis and dorsalis pedis pulses on that side with the Doppler. Faint right popliteal pulse was able to be heard with the Doppler. On my examination both feet were cold there was some mottling of the distal right foot to just above the ankle with pallor of the forefoot and cyanotic nail beds. Faint dorsalis pedis pulse was able to be heard using the Doppler on the left. Femoral pulses were easily palpable. The patient is being bolused with heparin and started on heparin drip for limb ischemia. Awaiting consult for Dr. Lazaro at this time. Patient's pulse and blood pressures are stable; he is not on vasopressors. <Rashmi Arriola PA-C - Last Filed: 05/10/20 22:51> The patient was seen and examined in conjunction with physician retail assistant store manager. Doppler was attempted to identify pulses in the right foot. Patient had absent pedal and posterior tibial pulses on the right in very weak dorsalis pedis pulse on the left with absent posterior tibial on the left. The patient's extremities were cold right greater than left with significant mottling of the right lower extremity. Patient's case was discussed with Dr. Padilla who agreed with the patient be placed on heparin drip. He will follow along with the patient's care. 20 minutes spent in critical care activities. <Ela Ventura DO - Last Filed: 05/12/20 04:56>
[2020-05-10 23:31] LABS: Basophils Percent Auto 0.1 % (0.2-1.2); Hematocrit 35.4 % (42.0-52.0); Hemoglobin 12.1 g/dL (14.0-18.0); Immature Granulocyte Absolute 0.07 K/mm3 (0.00-0.031); Immature Granulocyte Percent A 0.9 % (0-0.5); Lymphocytes Absolute Auto 0.23 K/mm3 (0.9-3.2); Mean Corpuscular HGB Conc 34.2 g/dl (32-36); Mean Corpuscular Hemoglobin 33.2 pg (26-34); Mean Corpuscular Volume 97.3 fl (80-100); Mean Platelet Volume 9.1 fl (7.4-10.4); Monocytes Absolute Auto 0.4 K/mm3 (0.1-0.6); Monocytes Percent Auto 4.7 % (2.6-8.5); Neutrophils Absolute Auto 6.9 K/mm3 (1.3-6.7); Neutrophils Percent Auto 91.3 % (45.5-73.1); Platelet Count Result 147 k/mm3 (150-375); Red Blood Count 3.64 M/mm3 (4.6-6.20); Red Cell Distribution Width 11.7 % (11.5-14.5); White Blood Count 7.6 K/mm3 (4.5-10.0)
[2020-05-10 23:41] LABS: INR 1.2; Prothrombin Time 15.8 Seconds (11.1-14.7)
[2020-05-10 23:42] LABS: Partial Thromboplastin Time 37.6 SECONDS (22.3-36.8)
[2020-05-11] VITALS (32 sets, daily range): BP systolic 99–113; BP diastolic 61–71; PULSE 77–884; RESP 25–30; TEMP 37–37.9; O2SAT 90–96
[2020-05-11] MEDS: HEPARIN SOD/D5W 100 UNITS/ML 25,000 UNITS/250 ML BAG 14 UNITS IV CONT (00:16)
[2020-05-11] MEDS: HEPARIN SODIUM 5,000 UNITS/ML VIAL 6500 UNITS IV PUSH (00:16)
[2020-05-11] MEDS: INSULIN ASPART (*BKC) 100 UNITS/ML SUB-Q ×4 (00:18→17:55)
[2020-05-11 02:00] LABS: Glucose Point of Care 283 (65-105)
[2020-05-11] MEDS: CENTRAL LINE FLUSH 10 ML IV PUSH ×3 (05:03→22:00)
[2020-05-11 05:23] LABS: Alveolar/Arterial O2 Gradient 315.1 mmHg; Base Excess ABG 2.4 mEq/l (+/-2.0); Carboxyhemoglobin 0.3 % THb (0-2.0); Device VENTILATOR; Fractional Inspired Oxygen 60 %; HCO3 ABG 27.8 mEq/l (22.0-26.0); Methemoglobin ABG 0.4 %THb (0-1.5); Modified Allen's Test Unable to perform; Oxygen Content ABG 22.3 %vol (16.0-22.0); Oxygen Saturation ABG 92.3 % (95.0-100.0); Oxyhemoglobin 92.3 % THb (90.0-100.0); PO2 ABG 63.2 mmHg (80.0-100.0); PO2 FiO2 Ratio Arterial Blood 1.05 %; Site Drawn RIGHT RADIAL; Total Hemoglobin 17.2 g/dL (12.0-18.0); pH ABG 7.408 (7.350-7.450)
[2020-05-11 05:24] LABS: Arterial Blood Gas PEEP 5 cmH2O; Arterial Blood Gas Tidal Volume 400 ml; Arterial Blood Gas Vent Mode CMV; Arterial Blood Gas Ventilator rate 25 /MIN
[2020-05-11 05:28] LABS: Basophils Percent Auto 0.1 % (0.2-1.2); Hematocrit 35.9 % (42.0-52.0); Hemoglobin 12.2 g/dL (14.0-18.0); Immature Granulocyte Absolute 0.08 K/mm3 (0.00-0.031); Immature Granulocyte Percent A 0.9 % (0-0.5); Lymphocytes Percent Auto 3.5 % (18.3-44.2); Mean Corpuscular Hemoglobin 33.2 pg (26-34); Mean Corpuscular Volume 97.6 fl (80-100); Mean Platelet Volume 9.7 fl (7.4-10.4); Monocytes Absolute Auto 0.4 K/mm3 (0.1-0.6); Monocytes Percent Auto 4.7 % (2.6-8.5); Neutrophils Absolute Auto 7.7 K/mm3 (1.3-6.7); Neutrophils Percent Auto 90.8 % (45.5-73.1); Platelet Count Result 160 k/mm3 (150-375); Red Blood Count 3.68 M/mm3 (4.6-6.20); Red Cell Distribution Width 11.6 % (11.5-14.5); White Blood Count 8.5 K/mm3 (4.5-10.0)
[2020-05-11 05:50] LABS: Alanine Aminotransferase 20 U/L (4-50); Albumin Level 2.6 g/dL (3.5-5.1); Alkaline Phosphatase 83 U/L (38-126); Anion Gap 2 mmol/L (8-16); Aspartate Amino Transferase 23 U/L (17-59); Bilirubin,Total 0.9 mg/dL (0.2-1.3); Blood Urea Nitrogen 27 mg/dL (9-20); Calcium 8.5 mg/dL (8.4-10.2); Carbon Dioxide 32 mmol/L (22-30); Chloride 106 mmol/L (98-107); Estimated CRCL calculation 81 ml/min; Estimated Glomerular Filt Rate > 60; Glucose 330 mg/dL (75-110); Lactate Dehydrogenase 582 U/L (313-618); Magnesium 2.6 mg/dL (1.6-2.3); Phosphorus 3.9 mg/dL (2.5-4.5); Potassium 4.8 mmol/L (3.4-5.0); Sodium 140 mmol/L (137-145)
[2020-05-11 06:00] LABS: CRP 21.3 mg/dL (<1.0)
[2020-05-11 06:50] LABS: Partial Thromboplastin Time 94.5 SECONDS (22.3-36.8)
[2020-05-11 06:51] LABS: D Dimer 2.95 ug/mL (<0.48)
[2020-05-11] MEDS: INSULIN DETEMIR 100 UNITS/ML 10 UNITS SUB-Q ×2 (08:56→20:43)
[2020-05-11] MEDS: PANTOPRAZOLE SODIUM IV 40 MG VIAL IV PUSH ×2 (08:57→20:45)
[2020-05-11] MEDS: DEXAMETHASONE SOD PHOS INJ 4 MG/ML VIAL 6 MG IV PUSH (08:57)
[2020-05-11] MEDS: CHOLECALCIFEROL 1,000 UNITS TABLET 1000 UNITS PO (08:57)
[2020-05-11] MEDS: ZINC SULFATE 220 MG CAPSULE PO (08:57)
[2020-05-11] MEDS: ASCORBIC ACID 500 MG TABLET PO (08:57)
[2020-05-11] MEDS: ASPIRIN 325 MG TABLET FEED TUBE (08:59)
--- NOTE | 2020-05-11 09:10 | PM.CNCAR ---
Assessment and Plan Assessment and plan (1) Lower limb ischemia: Code(s): I99.8 - Other disorder of circulatory system Status: Acute Assessment and Plan: In the setting of resp failure due to COVID pneumonia agree with IV heparin with concern of limb ischemia and hypercoagulable state associated with COIVD misty with elevated D dimer Will check 2D echo to rule out embolic source. Check arterial duplex of lower ext Given his resp status and + COVID he will be high risk for intervention. Will continue IV hepairn and follow duplex then decide on intervention if needed. (2) Acute respiratory failure with hypoxia: Code(s): J96.01 - Acute respiratory failure with hypoxia Status: Acute Assessment and Plan: Finished Remdesevir, receiving steroids (3) Diabetes mellitus with hyperglycemia: Qualifiers: Diabetes mellitus type: type 2 Diabetes mellitus mcc insulin use: without terminal operations supervisor use Qualified Code(s): E11.65 - Type 2 diabetes mellitus with hyperglycemia Code(s): E11.65 - Type 2 diabetes mellitus with hyperglycemia Status: Acute History of Present Illness History of Present Illness Consult date/time: 05/11/20 09:10 60 y/o male with only significant past medical history of DM and prior tobacco abuse who presented on 06/02/20 with worsening shortness of breath and typical symptoms of COVID that was confirmed by swab. He was started on Bipap and his oxygentation gradually worsened to the point that he had to be intubated on 05/08/20. He was noted to have cold right lower ext hence cardiology consult was requested. He was started on IV heparin with concern of possible limb ischemia. He is sedated on the vent. He has been hemodynamically stable and not requiring pressors support. His right foot is cool to touch and somewhat mottled. No gangrenous changes. No known cardiac history. He quit smoking in his 40s. EKG shows normal sinus rhythm Reason For Visit: Acute Respiratory Failure w/Hypoxia, COVID Pneumon Review of Systems Review of Systems: ROS unobtainable: Yes unobtainable due to endotracheal tube PMFSH Past Medical History Medical History (Updated 05/11/20 @ 09:21 by Michel Edwards MD) Hypertriglyceridemia Type 2 diabetes mellitus Surgical History Surgical History (Updated 05/03/20 @ 16:38 by Ela Vnetura DO) History of cardiac catheterization History of repair of right rotator cuff With no significant disease noted Family History Family History Mother Diabetes mellitus CHF (congestive heart failure) Father CHF (congestive heart failure) Diabetes mellitus Social History Social History (Updated 05/03/20 @ 16:49 by Ela Ventura DO) Social History: He lives in [place] with his . They have a total of 5 children between the 2 of them. He is 1 of 9 children. One of his siblings young but the rest are relatively healthy. Primary care physician: Dr. Nuno Messina Code status: Full code Smoking packs per day: 1 Smoking cigarettes per day: 20.0 Years smoked: 32 Smoking pack-years: 32.00 Smoking status: Former smoker Alcohol intake: never Alcohol use details: He rarely drinks alcohol and only in small amounts. However used to drink heavier in his younger days. Substance use: never Substance use type: does not use Occupation/Education: occupation Additional occupation/education comments: He works in [employer] sales. Gender identity (if verbalized by the patient): Male Spiritual care concerns: No Meds Home Medications and Allergies Home Medications Medication Instructions Recorded Confirmed Type canagliflozin [Invokana] 300 mg PO DAILY 05/03/20 05/03/20 History metformin 1,000 mg PO BID 05/03/20 05/03/20 History Allergies Allergy/AdvReac Type Severity Reaction Status Date / Time No Known Al
--- NOTE | 2020-05-11 09:27 | ECHO_ITS ---
Patient Info Name: Sylvester Bazan Age: 60 years : 1960 Gender: Male Ht: 68 in Wt: 179 lbs BSA: 1.99 m2 HR: 84 bpm BP: 104 / 92 mmHg Heart Rhythm: Sinus Rhythm Technical Quality: Good Exam Date: 05/11/2020 3:43 PM Exam Location: [facility] Card Pulmonary Patient Status: Inpatient Admit Date: 05/03/2020 Staff Ordering Physician: Michel Edwards MD ([email or web address]) Flatwork Presser: Clive Swann RDCS Attending Provider: Ela Ventura DO Exam Type: CA echo doppler color flow Study Info Indications J96.01 - Acute respiratory failure with hypoxia Complete two-dimensional, color flow and Doppler transthoracic echocardiogram is performed. History/Risk Factors Covid19+; lower limb ischemia, DM, SOB>. Summary 1. Complete two-dimensional, color flow and Doppler transthoracic echocardiogram is performed. 2. Left ventricular systolic function is normal, estimated at 60-65%. Left Ventricle Left ventricular chamber dimension is normal. Left ventricular systolic function is normal, estimated at 60-65%. There is no increased left ventricular wall thickness. Left ventricular septal wall motion is normal. The left ventricular diastolic function is normal. Right Ventricle Right ventricular chamber dimension is normal. Right ventricular systolic function is normal. Left Atria Left atrial chamber dimension is normal. Right Atria Right atrial chamber dimension is normal. Aortic Valve The aortic valve is trileaflet. There is no aortic valve sclerosis. There is no aortic valve stenosis. There is no aortic valve regurgitation. Pulmonic Valve The pulmonic valve is normal. There is no pulmonic valve stenosis. There is no pulmonic regurgitation. Mitral Valve The mitral valve has normal leaflets. There is no mitral valve stenosis. There is no mitral valve regurgitation. Tricuspid Valve The tricuspid valve leaflets are normal. There is no significant tricuspid valve stenosis. There is no tricuspid valve regurgitation. No pulmonary hypertension, estimated pulmonary arterial systolic pressure is 36 mmHg. Pericardium/Pleural The pericardium appears normal. There is no pericardial effusion. Inferior Vena Cava Normal inferior vena cava with >50% collapse upon inspiration consistent with normal right atrial pressure, 10 mmHg. Aorta The aortic root size at the sinus of Valsalva is normal. The prox ascending aorta size is normal. Left Ventricular Outflow Tract Name Value Normal LVOT 2D LVOT Diameter 2.0 cm LVOT Doppler LVOT Peak Gradient 3 mmHg LVOT Mean Gradient 2 mmHg LVOT VTI 16 cm LVOT VTI/AV VTI Ratio 0.8 LVOT Stroke Volume 53 ml LVOT CO 4.4 l/min LVOT CI 2.2 l/min/m2 Mitral Valve Name Value Normal
[2020-05-11 10:17] LABS: Glucose Point of Care 313 (65-105)
[2020-05-11 10:38] LABS: Glucose Point of Care 297 (65-105)
--- NOTE | 2020-05-11 11:15 | PCDIET ---
ICU Rounding Note: Patient tolerating Glucerna 1.2 at 60mL/hr goal rate fairly well. Feeding was held for 280mL residual overnight, per nursing, with lower residual on recheck. Last recorded weight is 81kg which is increased from last review. Bowel Motility: Last documented BM on 05/06/20. Discussed during rounds. Labs Reviewed: Hgb (12.2), Hct (35.9), Glu (330), BUN (27), Alb (2.6) Meds Noted: Vitamin C, Fentanyl, Decadron, Heparin, Novolog, Levemir, Xopenex, Versed, Protonix, Vitamin D, Zinc Sulfate, Propofol (rate of 7.19mL/hr provides 190kcal per day) Additional Notes: No skin breakdown documented. Following daily in ICU rounds. Assessing/reassessing every Saturday/Saturday.
[2020-05-11] MEDS: FENTANYL 2,500MCG/NS250ML(*CRX 2,500 MCG/250 ML BAG 20 MCG IV CONT (11:38)
[2020-05-11] MEDS: PROPOFOL IV EMULSION 100 ML 7.19 MG IV CONT (11:39)
[2020-05-11 12:59] LABS: Partial Thromboplastin Time 64.8 SECONDS (22.3-36.8)
--- NOTE | 2020-05-11 13:26 | WPDINTPN ---
Progress Note: A&P Assessment and Plan (1) Acute respiratory failure with hypoxia: Code(s): J96.01 - Acute respiratory failure with hypoxia Status: Acute Assessment and Plan: Hypoxic respiratory secondary COVID-19 pneumonia -failed high flow therapy and BiPAP was intubated on 05/08/2020 -continue CMV mode of ventilation, peep of 5, continue to wean FiO2 to maintain O2 sats greater than 92 to 94% -continue propofol, fentanyl and Versed infusion for sedation, maintain RASS of 0 to -2, daily sedation vacation -continue bronchodilators (2) Pneumonia due to COVID-19 virus: Code(s): U07.1 - COVID-19; J12.89 - Other viral pneumonia Status: Acute Assessment and Plan: Patient status post Remdesivir -continue dexamethasone -received convalescent plasma on 05/07/2020 -inflammatory markers elevated, will continue to trend -continue droplet, airborne and contact isolation/precautions (3) Diabetes mellitus with hyperglycemia: Qualifiers: Diabetes mellitus type: type 2 Diabetes mellitus halfway insulin use: without halfway use Qualified Code(s): E11.65 - Type 2 diabetes mellitus with hyperglycemia Code(s): E11.65 - Type 2 diabetes mellitus with hyperglycemia Status: Acute Assessment and Plan: Continue sliding scale insulin and Accu-Cheks -increase Levemir (4) DVT prophylaxis: Code(s): Z29.9 - Encounter for prophylactic measures, unspecified Status: Acute Assessment and Plan: Continue Lovenox SQ Q12H (5) Dietary counseling and surveillance: Code(s): Z71.3 - Dietary counseling and surveillance Status: Acute Assessment and Plan: Patient tolerating tube feeds (6) Lower limb ischemia: Code(s): I99.8 - Other disorder of circulatory system Status: Acute Assessment and Plan: Patient developed ischemia of the right foot. -start heparin infusion early this morning -cardiology has been consulted, -echocardiogram has been ordered -this could be related to COVID-19 -arterial Dopplers done on 07/22/2019 shows total occlusion of the right anterior tibial artery and posterior tibial artery. Increased velocity gradient between right common femoral artery and superficial femoral artery consistent with moderate to severe stenosis -increased velocity gradient proximal and distal to left popliteal artery considered moderate to severe stenosis Additional Plan D/w Cheyenne, patient's and updated with patient's condition and plan of care. I answered all questions Code status: Full code Critical care time spent: 33 minutes Due to a high probability of clinically significant, life threatening deterioration, the patient required my highest level of preparedness to intervene emergently and I personally spent this critical care time directly and personally managing the patient. This critical care time included obtaining a history; examining the patient; pulse oximetry; ordering and review of studies; arranging urgent treatment with development of a management plan; evaluation of patient's response to treatment; frequent reassessment; and discussions with other providers. It was exclusive of separately billable procedures and treating other patients and teaching time. Please see Assessment and Plan section and the rest of the note for further information on patient assessment and treatment Subjective Date/time seen: 05/11/20 13:26 Interval history: Reason for consult: COVID-19 pneumonia, acute hypoxic respiratory failure 05/11/2020: Was called in the middle of the night for as patient's right foot was cold cyanotic. Patient was started on heparin infusion, cardiology was called agreed with the same. Patient remains intubated, on 60% FiO2 and peep of 5. Hyperglycemic this morning. D-dimer trending down, CRP, LDH and ferritin had the same and stable. Patient with adequate urine output afebrile. Sedated with fentanyl and Versed in
[2020-05-11] MEDS: HEPARIN SODIUM 5,000 UNITS/ML VIAL 3000 UNITS IV PUSH ×2 (13:30→20:46)
[2020-05-11 15:59] LABS: Glucose Point of Care 322 (65-105)
[2020-05-11] MEDS: HEPARIN SOD/D5W 100 UNITS/ML 25,000 UNITS/250 ML BAG 16 UNITS IV CONT (17:54)
[2020-05-11 18:28] LABS: Glucose Point of Care 314 (65-105)
[2020-05-11 20:19] LABS: Partial Thromboplastin Time 70.6 SECONDS (22.3-36.8)
[2020-05-12] VITALS (28 sets, daily range): BP systolic 95–121; BP diastolic 56–68; PULSE 77–109; RESP 23–91; TEMP 37.7–39; O2SAT 90–94
[2020-05-12] MEDS: INSULIN ASPART (*BKC) 100 UNITS/ML SUB-Q ×2 (00:18→05:44)
[2020-05-12 00:56] LABS: Glucose Point of Care 306 (65-105)
[2020-05-12] MEDS: FENTANYL 2,500MCG/NS250ML(*CRX 2,500 MCG/250 ML BAG 20 MCG IV CONT ×2 (01:17→12:38)
[2020-05-12] MEDS: PROPOFOL IV EMULSION 100 ML 7.19 MG IV CONT ×2 (01:28→12:39)
[2020-05-12 02:47] LABS: Hematocrit 35.7 % (42.0-52.0); Mean Corpuscular HGB Conc 33.6 g/dl (32-36); Mean Corpuscular Hemoglobin 33.1 pg (26-34); Mean Corpuscular Volume 98.3 fl (80-100); Mean Platelet Volume 9.4 fl (7.4-10.4); Platelet Count Result 152 k/mm3 (150-375); Red Blood Count 3.63 M/mm3 (4.6-6.20); Red Cell Distribution Width 11.7 % (11.5-14.5); White Blood Count 7.1 K/mm3 (4.5-10.0)
[2020-05-12 02:59] LABS: Alanine Aminotransferase 19 U/L (4-50); Albumin Level 2.6 g/dL (3.5-5.1); Alkaline Phosphatase 75 U/L (38-126); Anion Gap 4 mmol/L (8-16); Aspartate Amino Transferase 31 U/L (17-59); Bilirubin,Total 0.9 mg/dL (0.2-1.3); Blood Urea Nitrogen 31 mg/dL (9-20); Calcium 8.5 mg/dL (8.4-10.2); Carbon Dioxide 31 mmol/L (22-30); Chloride 107 mmol/L (98-107); Estimated CRCL calculation 72 ml/min; Estimated Glomerular Filt Rate > 60; Glucose 302 mg/dL (75-110); Magnesium 2.5 mg/dL (1.6-2.3); Phosphorus 4.4 mg/dL (2.5-4.5); Potassium 4.7 mmol/L (3.4-5.0); Sodium 142 mmol/L (137-145)
[2020-05-12 03:19] LABS: Partial Thromboplastin Time 107.4 SECONDS (22.3-36.8)
[2020-05-12 05:14] LABS: Alveolar/Arterial O2 Gradient 328.2 mmHg; Carboxyhemoglobin 0.3 % THb (0-2.0); Fractional Inspired Oxygen 60 %; HCO3 ABG 26.4 mEq/l (22.0-26.0); Methemoglobin ABG 0.2 %THb (0-1.5); Oxygen Content ABG 16.2 %vol (16.0-22.0); Oxygen Saturation ABG 89.7 % (95.0-100.0); Oxyhemoglobin 88.6 % THb (90.0-100.0); PCO2 ABG 40.4 mmHg (35.0-45.0); PO2 ABG 55.2 mmHg (80.0-100.0); PO2 FiO2 Ratio Arterial Blood 0.92 %; Reduced Hemoglobin 10.9 %THb (0-5.0); pH ABG 7.433 (7.350-7.450)
[2020-05-12 05:15] LABS: Site Drawn RIGHT RADIAL
[2020-05-12 05:16] LABS: Arterial Blood Gas Vent Mode CMV; Arterial Blood Gas Ventilator rate 25 /MIN; Device VENTILATOR; Modified Allen's Test Pass
[2020-05-12 05:17] LABS: Arterial Blood Gas PEEP 5 cmH2O; Arterial Blood Gas Tidal Volume 400 ml
[2020-05-12] MEDS: CENTRAL LINE FLUSH 10 ML IV PUSH (05:44)
[2020-05-12 06:36] LABS: Glucose Point of Care 265 (65-105)
[2020-05-12] MEDS: HEPARIN SOD/D5W 100 UNITS/ML 25,000 UNITS/250 ML BAG 16 UNITS IV CONT (08:10)
[2020-05-12] MEDS: ASCORBIC ACID 500 MG TABLET PO (08:17)
[2020-05-12] MEDS: DEXAMETHASONE SOD PHOS INJ 4 MG/ML VIAL 6 MG IV PUSH (08:17)
[2020-05-12] MEDS: CHOLECALCIFEROL 1,000 UNITS TABLET 1000 UNITS PO (08:17)
[2020-05-12] MEDS: ASPIRIN 325 MG TABLET FEED TUBE (08:17)
[2020-05-12] MEDS: ZINC SULFATE 220 MG CAPSULE PO (08:18)
[2020-05-12] MEDS: INSULIN DETEMIR 100 UNITS/ML 22 UNITS SUB-Q (08:18)
[2020-05-12] MEDS: PANTOPRAZOLE SODIUM IV 40 MG VIAL IV PUSH (08:18)
[2020-05-12] MEDS: ACETAMINOPHEN 325 MG TABLET 650 MG PO (08:19)
[2020-05-12 09:50] LABS: Partial Thromboplastin Time 62.6 SECONDS (22.3-36.8)
[2020-05-12] MEDS: HEPARIN SODIUM 5,000 UNITS/ML VIAL 3000 UNITS IV PUSH (09:56)
--- NOTE | 2020-05-12 11:25 | PCDIET ---
Nutrition Note: Patient tolerating Glucerna 1.2 at 60mL/hr goal rate with 30mL water flush every 4 hours. If medically appropriate, would consider medication to promote BM. Reported plan for transfer to outside hospital later today. Last recorded weight is 81.9 kg which is increased from last review. +I/O. Bowel Motility: Residuals 200mL and below. Still no BM documented since 05/06/20. Labs Reviewed: Hgb (12.0), Hct (35.7), Glu (302), BUN (31) Meds Noted: Propofol (rate of 4.79mL/hr provides 126kcal per day), Novolog, Levemir, Xopenex, Vitamin C, Decadron, Fentanyl, Heparin, Versed, Protonix, Vitamin D, Zinc Sulfate Additional Notes: No documented skin breakdown.
--- NOTE | 2020-05-12 13:08 | WPDINTPN ---
Progress Note: A&P Assessment and Plan (1) Lower limb ischemia: Code(s): I99.8 - Other disorder of circulatory system Status: Acute Assessment and Plan: Patient developed ischemia of the right foot. -start heparin infusion early this morning -cardiology has been consulted, -echocardiogram has been ordered -this could be related to COVID-19 -arterial Dopplers done on 07/22/2019 shows total occlusion of the right anterior tibial artery and posterior tibial artery. Increased velocity gradient between right common femoral artery and superficial femoral artery consistent with moderate to severe stenosis -increased velocity gradient proximal and distal to left popliteal artery considered moderate to severe stenosis -called [facility] vascular surgery transfer the patient, accepted the patient in stated that they will be on consult in the ICU. Discussed with Dr. Quinteros the ICU supervisor display fabrication at [facility] except patient. (2) Acute respiratory failure with hypoxia: Code(s): J96.01 - Acute respiratory failure with hypoxia Status: Acute Assessment and Plan: Hypoxic respiratory secondary COVID-19 pneumonia -failed high flow therapy and BiPAP was intubated on 05/08/2020 -continue CMV mode of ventilation, peep of 5, continue to wean FiO2 to maintain O2 sats greater than 92 to 94% -continue propofol, fentanyl and Versed infusion for sedation, maintain RASS of 0 to -2, daily sedation vacation -continue bronchodilators (3) Pneumonia due to COVID-19 virus: Code(s): U07.1 - COVID-19; J12.89 - Other viral pneumonia Status: Acute Assessment and Plan: Patient status post Remdesivir -continue dexamethasone -received convalescent plasma on 05/07/2020 -inflammatory markers elevated, will continue to trend -continue droplet, airborne and contact isolation/precautions (4) Diabetes mellitus with hyperglycemia: Qualifiers: Diabetes mellitus type: type 2 Diabetes mellitus half-way insulin use: without intermodal dispatcher use Qualified Code(s): E11.65 - Type 2 diabetes mellitus with hyperglycemia Code(s): E11.65 - Type 2 diabetes mellitus with hyperglycemia Status: Acute Assessment and Plan: Continue sliding scale insulin and Accu-Cheks -increase Levemir (5) DVT prophylaxis: Code(s): Z29.9 - Encounter for prophylactic measures, unspecified Status: Acute Assessment and Plan: Continue Lovenox SQ Q12H (6) Dietary counseling and surveillance: Code(s): Z71.3 - Dietary counseling and surveillance Status: Acute Assessment and Plan: Patient tolerating tube feeds Additional Plan D/w Cheyenne, patient's and updated with patient's condition and plan of care. I answered all questions Code status: Full code Critical care time spent: 34 minutes Due to a high probability of clinically significant, life threatening deterioration, the patient required my highest level of preparedness to intervene emergently and I personally spent this critical care time directly and personally managing the patient. This critical care time included obtaining a history; examining the patient; pulse oximetry; ordering and review of studies; arranging urgent treatment with development of a management plan; evaluation of patient's response to treatment; frequent reassessment; and discussions with other providers. It was exclusive of separately billable procedures and treating other patients and teaching time. Please see Assessment and Plan section and the rest of the note for further information on patient assessment and treatment Subjective Date/time seen: 05/12/20 13:08 Interval history: Reason for consult: COVID-19 pneumonia, acute hypoxic respiratory failure 04/12/2020: Patient's right foot remains cyanotic and cold. Called [facility] to transfer the patient to vascular surgery. Vascular surgery at [facility] accepted the patient, discussed with supervisor display fabrication
--- NOTE | 2020-05-12 13:20 | PC.NURSE ---
Pt transferred to [facility] via ambulance. Fentanyl, Versed, Propofolol, and Heparin drips infusing. Ventilator intake with no issues noted. Personal belongings kept here for to scrap picker at later date, per , Cheyenne's, request. Report called to HARPER Michaels @ [phone].
[2020-05-12 13:48] LABS: Glucose Point of Care 337 (65-105)
--- NOTE | 2020-05-12 13:56 | PM.PNCARD ---
Progress Note: A&P Assessment and Plan (1) Lower limb ischemia: Code(s): I99.8 - Other disorder of circulatory system Status: Acute Assessment and Plan: In the setting of resp failure due to COVID pneumonia agree with IV heparin with concern of limb ischemia and hypercoagulable state associated with COIVD misty with elevated D dimer Heparin was started, I reviewed his arterial duplex images, my own interpretation shows that patient has patent SFA and no significant disease and the common femorals, there is some change in the velocity on the left side, but does not reflect any clinical implications, obviously that change of velocity across the vessels could indicate low pressure bed in the supply, but has nothing to do with a gradient across the vessel as the radiologist indicated. Clear visualization of the vessels and the right and left SFA showed patent vessels and patent popliteal vessels bilaterally, shows significant reduction in flow noted in the right anterior tibial and right posterior tibial, but there is slight distal flow, which indicated the possibility that this may improve with continuing anticoagulation. Agree with transfer to tertiary center with vascular evaluation, as they may do angiogram and possible intervention as indicated, since were not going to be able to do that here at this facility (2) Acute respiratory failure with hypoxia: Code(s): J96.01 - Acute respiratory failure with hypoxia Status: Acute Assessment and Plan: Finished Remdesevir, receiving steroids (3) Diabetes mellitus with hyperglycemia: Qualifiers: Diabetes mellitus type: type 2 Diabetes mellitus shelter insulin use: without shelter use Qualified Code(s): E11.65 - Type 2 diabetes mellitus with hyperglycemia Code(s): E11.65 - Type 2 diabetes mellitus with hyperglycemia Status: Acute Subjective Date/time seen: 05/12/20 13:56 Getting ready to be transferred to [facility], for vascular evaluation. Initially I was asked to see him for acute loss of pulse on the right leg, arterial duplex was done showed patent SFA bilaterally, with totally occluded and right anterior tibial and right posterior tibial but with patent peroneal vessel. Recommendation were made for heparin for the time being and close follow-up, to consider angiogram when he is otherwise more stable from respiratory point of view. Since his SFA is patent with no occlusion there, the risk of limb loss is much less. Objective Data Vital Signs Vital Signs: Vital Signs - 24 hr 05/11/20 14:00 05/11/20 14:55 05/11/20 15:05 Temperature Pulse Rate 84 87 88 Respiratory Rate 25 H 30 H 30 H Blood Pressure 99/66 L Pulse Oximetry 94 92 05/11/20 16:00 05/11/20 16:57 05/11/20 18:00 Temperature 37.3 C Pulse Rate 87 79 79 Respiratory Rate 25 H 25 H Blood Pressure 109/71 99/61 L Pulse Oximetry 93 92 92 05/11/20 18:19 05/11/20 18:20 05/11/20 20:00 Temperature 37.6 C H Pulse Rate 79 78 80 Respiratory Rate 25 H 25 H 25 H Blood Pressure 106/66 Pulse Oximetry 93 05/11/20 20:29 05/11/20 22:00 05/11/20 22:57 Temperature Pulse Rate 77 81 77 Respiratory Rate 25 H 25 H Blood Pressure 112/71 Pulse Oximetry 92 91 92 05/12/20 00:00 05/12/20 00:29 05/12/20 00:30 Temperature 37.7 C H Pulse Rate 78 77 80 Respiratory Rate 25 H 25 H 28 H Blood Pressure 118/68 Pulse Oximetry 93 05/12/20 01:17 05/12/20 01:28 05/12/20 02:00 Temperature Pulse Rate 80 82 85 Respiratory Rate 28 H 29 H Blood Pressure Pulse Oximetry 05/12/20 02:18 05/12/20 02:25 05/12/20 02:32 Temperature Pulse Rate 83 81 83 Respiratory Rate 28 H 26 H 25 H Blood Pressure Pulse Oximetry 94 05/12/20 04:00 05/12/20 04:58 05/12/20 06:00 Temperature 37.7 C H Pulse Rate 87 87 84 Respiratory Rate 24 H 25 H Blood Pressure 112/68 111/68 Pulse Oximetry 90 91 93 05/12/20 06:06 05/12/20 08:00 12
--- NOTE | 2020-05-12 15:40 | PM.TDS ---
Transfer Discharge Sum: Prov Provider Date of admission: 05/03/20 15:46 Primary care physician: Nuno Messina, Admitting clinician: Ela Ventura DO Consults: 05/08/20 Consult to Physician Routine Comment: Consulting Provider: Nikole Wang Reason for consultation: respiratory failure Has provider been notified: Yes 05/11/20 02:15 Consult to Physician Routine Comment: Consulting Provider: Alexandr Lazaro Reason for consultation: absent pedal pulses Has provider been notified: Yes DS: Admitting Diagnosis Admitting Diagnosis Admitting Diagnosis: Acute Respiratory Failure w/Hypoxia, COVID Pneumonia DS: Discharge Diagnosis Discharge Diagnosis (1) Acute respiratory failure with hypoxia: Code(s): J96.01 - Acute respiratory failure with hypoxia Status: Acute Assessment and Plan: -Intubated 05/08 -city clerk for ICU management -on ventilator with tube feeds (2) Pneumonia due to COVID-19 virus: Code(s): U07.1 - COVID-19; J12.89 - Other viral pneumonia Status: Acute Assessment and Plan: -diagnosed 04/29/2020, symptom onset 04/24- -sedated on ventilator -Remdesivir, dexamethasone 05/03- -convalescent plasma 05/04 ordered -05/07 placing patient on Airvo -05/08 intubated for impending respiratory failure -tube feeds started 05/09 -continue care as before (3) Diabetes mellitus with hyperglycemia: Qualifiers: Diabetes mellitus lobsterman insulin use: without longterm use Diabetes mellitus type: type 2 Qualified Code(s): E11.65 - Type 2 diabetes mellitus with hyperglycemia Code(s): E11.65 - Type 2 diabetes mellitus with hyperglycemia Status: Acute Assessment and Plan: -hemoglobin A1c 7.8 -sliding scale insulin a.c. HS -hypoglycemia protocol (4) Lower limb ischemia: Code(s): I99.8 - Other disorder of circulatory system Status: Acute Assessment and Plan: Unfortunately patient developed ischemia of the right foot. ICU MD wants him urgently transferred to vascular team in [facility] accepted by Dr. Quinteros the ICU city clerk at [facility]. -start heparin infusion early this morning -cardiology has been consulted, -echocardiogram has been ordered -this could be related to COVID-19 -arterial Dopplers done on 07/22/2019 shows total occlusion of the right anterior tibial artery and posterior tibial artery. Increased velocity gradient between right common femoral artery and superficial femoral artery consistent with moderate to severe stenosis -increased velocity gradient proximal and distal to left popliteal artery considered moderate to severe stenosis -called [facility] vascular surgery to transfer the patient. Transfer Discharge Sum: Med Medications Active and Home Medications: Home Medications canagliflozin [Invokana] 300 mg PO DAILY 05/03/20 [History Confirmed 05/03/20] metformin 1,000 mg PO BID 05/03/20 [History Confirmed 05/03/20] Transfer Discharge Sum: Hosp Hospital Course Hospital course: Sylvester Bazan is a 60 year old male patient is intubated, sedated. Continue care in icu, 60 year old male known history of hypertriglyceridemia and type 2 diabetes mellitus who presented to the ER with 1 week of weakness, shortness of breath associated with known COVID-19 infection, pt is on a ventilator, no other concerns mentioned. Unfortunately patient developed ischemia of the right foot. ICU MD wants him urgently transferred to vascular team in [facility]. Getting ready to be transferred to [facility], for vascular evaluation. Time Spent with Patient Time attestation: Total time spent providing and/or coordinating transfer services: 50 minutes on day of discharge Exam Narrative: Exam Narrative: GENERAL: Male intubated and sedated Resp: Effort & Inspection: normal respiratory effort Auscultation: rales, rhonchi and diminished lung sounds Other: Coarse breath sounds darian
== END 2020-05-12 13:20 | disposition short-term general hospital (02) | DRG 207 ==
LOC: ANHED 15:39 → ANHIMU 18:36 → ANHICU 05-16 10:29 → ANHIMU 05-16 10:29
PROVIDERS: Family Medicine; Internal Medicine; Physician Assistant; Admitting Provider Internal Medicine; Emergency Provider Emergency Medicine; PCP Family Medicine Sports Medicine; Visit Provider Student in an Organized Health Care Education/Training Program
DX: U07.1 COVID-19 (principal); J12.89 Other viral pneumonia; J96.01 Acute respiratory failure with hypoxia; D68.69 Other thrombophilia; E11.65 Type 2 diabetes mellitus with hyperglycemia; I99.8 Other disorder of circulatory system; E78.1 Pure hyperglyceridemia; Z87.891 Personal history of nicotine dependence
CPT/HCPCS: 31500; 36415; 36430; 36569; 36600; 71045; 80048; 80053; 80076; 82375; 82565; 82728; 82805; 83036; 83050; 83615; 83735; 84100; 84460; 85025; 85027; 85055; 85380; 85610; 85730; 86140; 86900; 86901; 93005; 93306; 93925; 94002; 94003; 94640; 96374; 99291; A9270; C1751; C9113; J1100; J1644; J1650; J1815; J2250; J2704; J3010; J7040; P9059